=== PATIENT | female | born 1935 | race Caucasian/White ===

== ENCOUNTER 2016-09-23 22:30 | Inpatient (IN) | payer OTHER ==
[~2016-09-23] VITALS: Ht 154.9 cm; Wt 78.8 kg
[2016-09-23] MEDS ORDERED: SODIUM CHLORIDE 0.9% 1000ML 1,000 ML IV SCH (23:22)
--- NOTE | 2016-09-23 23:39 | EMERGENCY ROOM VISIT NOTE ---
History Report prepared by Peter: Giovanni Conway Under the Supervision of: Dr. Kyra Kenney M.D. First contact with patient: 23:13 Chief Complaint: ALTERED MENTAL STATUS Stated Complaint: MENTAL,SWOLLEN R CHEEK, TOE PAIN, FATIGUE, Nursing Triage Summary: son reports that pt has been c/o fatigue for the past few days and right pinky toe pain for a few days. yesterday pts right cheek was swollen and she wasn't acting herself. Son was unable to get ahold of pt all day long and he went to check on her and she was putting dog food in her pill container. son reports that pts sentences were not making sense. unsure if pt has been taking meds. History of Present Illness The patient is a 80 year old female who presents to the Emergency Room with complaints of constant altered mental status starting around 2100 tonight. Per the patient's family, the patient was found trying to put dog food into her medication capsules, and she was feeding her dog the medication and food. Per the patient, she is feeling well, and she denies any pain, weight loss, headache , changes in vision, vomiting, or history of strokes. She states that she smokes about a pack of cigarettes per day, and she denies drinking any alcohol. The patient states that she is diabetic, and she has been eating and drinking well. The patient's family additionally states that the patient has history of kidney stones and UTIs. Source of History: patient, family Onset: 2100 Position: other (global) Quality: other (altered mental status) Timing: constant Associated Symptoms: No headache, No vomiting Review of Systems See HPI for pertinent positives & negatives. A total of 10 systems reviewed and were otherwise negative. Past Medical & Surgical Medical Problems: (1) Kidney stone (2) UTI (urinary tract infection) Family History Diabetes mellitus Gallbladder disease Heart disease Hypertension Kidney disease Kidney stones Social History Smoking Status: Current Every Day Smoker Alcohol Use: none Marital Status: Housing Status: lives alone Occupation Status: retired Current/Historical Medications Scheduled Allopurinol (Zyloprim), 300 MG PO DAILY Atorvastatin (Lipitor), 40 MG PO HS Glipizide (Glucotrol), 10 MG PO BID Insulin Glargine (Lantus), 38 UNITS SQ AMPM Lisinopril/Hctz (Zestoretic 20MG/12.5MG), 1 TAB PO BID Metformin Hcl (Glucophage), 1,000 MG PO BIDM Potassium Citrate (Alkalinizer (Potassium Citrate ER), 3,240 MG PO TID Scheduled PRN Alprazolam (Xanax), 0.25 MG PO DAILY PRN for 30 MINUTES BEFORE FLYING Allergies Coded Allergies: NSAIDs (Verified Adverse Reaction, Intermediate, HX KIDNEY DISEASE, ) Uncoded Allergies: PENICILLIN (Allergy, Unknown, UNKNOWN- CHILDHOOD, 09/24/16) Physical Exam Vital Signs Date Time Temp Pulse Resp B/P Pulse Ox O2 Delivery O2 Flow Rate FiO2 09/24/16 01:18 69 22 102/66 96 Room Air 09/24/16 00:37 71 20 112/46 97 Room Air 09/24/16 00:11 94 Room Air 09/23/16 23:12 82 09/23/16 22:37 36.5 96 18 116/68 94 Room Air Physical Exam Vital signs reviewed. General: Well-appearing older female, in no significant distress. Smells of cigarettes. Confused but answers most questions appropriately with some prompting. HEENT: No scleral icterus, PERRLA, neck supple. Atraumatic. Cardiovascular: Regular rate and rhythm, no extra sounds. Pulmonary: Diffuse wheezing, a coarse cough, normal work of breathing. Abdomen: Soft, nontender, nondistended, positive bowel sounds. Musculoskeletal: Atraumatic, no peripheral edema. Neurologic: No drift. Patient awake alert and oriented x 3, full strength in all 4 extremities. Cranial nerves 2 through 12 grossly intact. Skin: Warm, dry, no rash Medical Decision & Procedures ER Provider Diagnostic Interpretation: X-ray results as stated below per interpretation by me: CHEST X-RAY Some perihilar fullness. No focal lung consolidation. No failure. Radiology results as stated below per my review and radiologist interpretation: CT HEAD: No acute intracranial abnormality. No ICH, mass effect or edema. Cortical atrophy and white matter changers most consistent with chronic small vessel disease. Mild paranasal sinus disease involving the ethmoid air cells. Laboratory Results 09/23/16 23:50 Red Blood Count 4.20, Mean Corpuscular Volume 84.8, Mean Corpuscular Hemoglobin 28.6, Mean Corpuscular Hemoglobin Concent 33.7, Mean Platelet Volume 8.4, Neutrophils (%) (Auto) 76.6, Lymphocytes (%) (Auto) 15.7, Monocytes (%) (Auto) 6.6, Eosinophils (%) (Auto) 0.4, Basophils (%) (Auto) 0.2, Neutrophils # (Auto) 9.88, Lymphocytes # (Auto) 2.02, Monocytes # (Auto) 0.85, Eosinophils # (Auto) 0.05, Basophils # (Auto) 0.02 09/23/16 23:50 Test 09/23/16 23:11 09/23/16 23:50 09/24/16 00:05 Bedside Glucose 259 mg/dl (70-90) White Blood Count 12.88 K/uL (4.8-10.8) Red Blood Count 4.20 M/uL (4.2-5.4) Hemoglobin 12.0 g/dL (12.0-16.0) Hematocrit 35.6 % (37-47) Mean Corpuscular Volume 84.8 fL (80-100) Mean Corpuscular Hemoglobin 28.6 pg (25-34) Mean Corpuscular Hemoglobin Concent 33.7 g/dl (32-36) Platelet Count 317 K/uL (130-400) Mean Platelet Volume 8.4 fL (7.4-10.4) Neutrophils (%) (Auto) 76.6 % Lymphocytes (%) (Auto) 15.7 % Monocytes (%) (Auto) 6.6 % Eosinophils (%) (Auto) 0.4 % Basophils (%) (Auto) 0.2 % Neutrophils # (Auto) 9.88 K/uL (1.4-6.5) Lymphocytes # (Auto) 2.02 K/uL (1.2-3.4) Monocytes # (Auto) 0.85 K/uL (0.11-0.59) Eosinophils # (Auto) 0.05 K/uL (0-0.5) Basophils # (Auto) 0.02 K/uL (0-0.2) RDW Standard Deviation 42.0 fL (36.4-46.3) RDW Coefficient of Variation 13.7 % (11.5-14.5) Immature Granulocyte % (Auto) 0.5 % Immature Granulocyte # (Auto) 0.06 K/uL (0.00-0.02) Prothrombin Time 11.0 SECONDS (9.0-12.0) Prothromb Time International Ratio 1.0 (0.9-1.1) Activated Partial Thromboplast Time 25.4 SECONDS (21.0-31.0) Partial Thromboplastin Ratio 1.0 Anion Gap 7.0 mmol/L (3-11) Est Creatinine Clear Calc Drug Dose 44.6 ml/min Estimated GFR () 61.2 Estimated GFR (Non- 52.8 BUN/Creatinine Ratio 17.2 (10-20) Calcium Level 8.5 mg/dl (8.5-10.1) Total Creatine Kinase 16 U/L (26-192) Creatine Kinase MB < 0.5 ng/ml (0.5-3.6) Creatine Kinase MB Ratio (0-3.0) Troponin I < 0.015 ng/ml (0-0.045) Urine Color YELLOW Urine Appearance CLOUDY (CLEAR) Urine pH 5.0 (4.5-7.5) Urine Specific [place] >= 1.030 (1.000-1.030) Urine Protein 2+ (NEG) Urine Glucose (UA) NEG (NEG) Urine Ketones TRACE (NEG) Urine Occult Blood 1+ (NEG) Urine Nitrite NEG (NEG) Urine Bilirubin NEG (NEG) Urine Urobilinogen NEG (NEG) Urine Leukocyte Esterase SMALL (NEG) Urine RBC 0-4 /hpf (0-4) Urine WBC >30 /hpf (0-5) Urine Epithelial Cells 10-20 /lpf (0-5) Urine Bacteria 1+ (NEG) Urine Opiates Screen NEG (NEG) Urine Methadone, Qualitative NEG (NEG) Urine Barbiturates NEG (NEG) Urine Phencyclidine (PCP) Level NEG (NEG) Ur Amphetamine/Methamphetamine NEG (NEG) MDMA (Ecstasy) Screen NEG (NEG) Urine Benzodiazepines Screen NEG (NEG) Urine Cocaine Metabolite NEG (NEG) Urine Marijuana (THC) NEG (NEG) Laboratory results per my review. Medications Administered Medications (Trade) Dose Ordered Sig/Walt Route Start Time Stop Time Status Last Admin Dose Admin Sodium Chloride (Nss 1000ml) 1,000 ml @ 50 mls/hr Q20H IV 09/23/16 23:22 10/23/16 23:21 09/24/16 00:36 50 MLS/HR Ceftriaxone Sodium (Rocephin Inj) 1 gm NOW STAT IV 09/24/16 00:45 09/24/16 00:47 DC 09/24/16 01:14 1 GM ECG Indication: altered mental status Rate (beats per minute): 84 Rhythm: normal sinus Findings: no acute ischemic change, no ectopy, other (previous anterolateral infarct) ED Course 2320: Past medical records reviewed. The patient was evaluated in room B11. A complete history and physical examination was performed. 2322: Sodium Chloride 1000 ml @ 50 mls/hr IV 0045: Rocephin Inj 1gm IV 0114: I reevaluated the patient, and she was resting. 0119: I discussed the patient's case with Dr. Cisneros. He is going to evaluate the patient for further treatment Medical Decision Differential diagnosis: Etiologies such as metabolic, infection, hypoglycemia, electrolyte abnormalities , cardiac sources, intracerebral event, toxicologic, neurologic, as well as others were entertained. This patient was evaluated and appeared to be in no significant distress. The patient is somewhat disheveled, smells of cigarettes. CT scan of the head reveals atrophy and chronic change however there is no evidence of acute infarct or hemorrhage. Chest x-ray is clear to my interpretation. Patient's laboratory work reveals a leukocytosis. Urinalysis is indicative of infection will be sent for culture. Patient's vital signs have remained stable. She was hydrated with normal saline solution and given 1 g of IV ceftriaxone. Case was discussed with the hospitalist, Dr. Rogers who will evaluate the patient for further management. Consults Time Called: 100 Consulting Physician: Dr. Cisneros Returned Call: [phone] I discussed the patient's case with Dr. Cisneros. He is going to evaluate the patient for further treatment Impression Primary Impression: Urinary tract infection Additional Impression: Altered mental status Scribe Attestation The scribe's documentation has been prepared under my direction and personally reviewed by me in its entirety. I confirm that the note above accurately reflects all work, treatment, procedures, and medical decision making performed by me. Departure Information Dispostion Being Evaluated By Hospitalist Rosalina Chakraborty M.D. (MEDICAL) (PCP) Patient Instructions [facility] Problem Qualifiers
[2016-09-24 00:08] LABS: BASO % 0.2 %; BASO ABS # 0.02 K/uL (0-0.2); COMPLETE YES; EOS % 0.4 %; HEMATOCRIT 35.6 % (37-47); IG% 0.5 %; LYMPH % 15.7 %; LYMPH ABS # 2.02 K/uL (1.2-3.4); MEAN CELL VOLUME 84.8 fL (80-100); MEAN CORPUSCULAR HEMOGLOBIN 28.6 pg (25-34); MEAN CORPUSCULAR HGB CONC 33.7 g/dl (32-36); MEAN PLATELET VOLUME 8.4 fL (7.4-10.4); MONO % 6.6 %; NEUT % 76.6 %; PLATELET COUNT 317 K/uL (130-400); WHITE BLOOD COUNT 12.88 K/uL (4.8-10.8)
[2016-09-24 00:25] LABS: BLOOD UREA NITROGEN 17 mg/dl (7-18); BUN/CREATININE RATIO 17.2 (10-20); CALCIUM 8.5 mg/dl (8.5-10.1); CARBON DIOXIDE 29 mmol/L (21-32); CHLORIDE 98 mmol/L (98-107); GLUCOSE 253 mg/dl (70-99); SODIUM 134 mmol/L (136-145)
[2016-09-24] MEDS ORDERED: METF-384 PO (00:28)
[2016-09-24] MEDS ORDERED: LISI-787 PO (00:29)
[2016-09-24] MEDS ORDERED: GLIP10TA9 PO (00:30)
[2016-09-24 00:31] LABS: MANUAL MICROSCOPIC REQUIRED? YES; URINE APPEARANCE CLOUDY (CLEAR); URINE COLOR YELLOW; URINE NITRITE NEG (NEG); URINE SPECIFIC GRAVITY >= 1.030 (1.000-1.030); UROBILINOGEN NEG (NEG)
[2016-09-24] MEDS ORDERED: ALLO300T2 PO (00:31)
[2016-09-24] MEDS ORDERED: INSDGI SQ (00:32)
[2016-09-24] MEDS ORDERED: ATOR-24 PO (00:33)
[2016-09-24] MEDS ORDERED: POTA1080 PO (00:36)
[2016-09-24 00:38] LABS: REVIEW REQ? NO; URINE BILIRUBIN NEG (NEG)
[2016-09-24] MEDS ORDERED: ALPR0.25 PO (00:38)
[2016-09-24 00:40] LABS: URINE BACTERIA 1+ (NEG); URINE RBC 0-4 /hpf (0-4); URINE WBC >30 /hpf (0-5); ZZURINE CULT IF INDIC CATH YES
[2016-09-24] MEDS ORDERED: CEFTRIAXONE SOD INJ 1 GM ADDVIAL IV STA (00:45)
[2016-09-24 00:52] LABS: BENZODIAZEPINE, URINE NEG (NEG); COCAINE,URINE NEG (NEG); PHENCYCLIDINE, URINE NEG (NEG)
[2016-09-24 01:35] LABS: ALKALINE PHOSPHATASE 126 U/L (45-117); ALT/SGPT 11 U/L (12-78); AST/SGOT 7 U/L (15-37); MAGNESIUM 1.2 mg/dl (1.8-2.4)
[2016-09-24] MEDS ORDERED: ACETAMINOPHEN 325 MG TAB PO PRN (02:00)
[2016-09-24] MEDS ORDERED: GLUCOSE 10 TABS/TUBE PO PRN (02:00)
[2016-09-24] MEDS ORDERED: ONDANSETRON INJ 2 MG/ML 2 ML VIAL IV PRN (02:00)
[2016-09-24] MEDS ORDERED: GLUCAGON FOR INJ 1 MG VIAL SQ PRN (02:00)
[2016-09-24] MEDS ORDERED: TRAMADOL HCL 50 MG TAB PO PRN (02:00)
[2016-09-24] MEDS ORDERED: GLUCOSE 40% GEL 15 GM TUBE PO PRN (02:00)
[2016-09-24] MEDS ORDERED: ALBUT/IPRATROP 3MG/0.5MG NEB 3 ML VIAL INH PRN (02:00)
[2016-09-24] MEDS ORDERED: DEXTROSE 50% 50 ML SYR IV PRN (02:00)
[2016-09-24] MEDS ORDERED: INSULIN ASPART 100 UNITS/ML 3 ML PEN SC STA (02:20)
[2016-09-24] MEDS ORDERED: INSULIN GLARGINE SOLOSTAR 100 UNITS/ML 3 ML PEN SQ STA (02:21)
[2016-09-24] MEDS ORDERED: MAGNESIUM SULFATE 1GM / D5W 1 GM BAG ONE (02:37)
[2016-09-24] MEDS: MAGNESIUM SULFATE 1GM / D5W 1 GM in PREMIXED IN D5W 100 ML IV SCH ×3 (02:42→05:53)
[2016-09-24 03:44] VITALS: BP 139/77; PULSE 66; TEMP 36.4; O2SAT 95
[2016-09-24] MEDS ORDERED: SODIUM CHLORIDE 0.9% 1000ML 1,000 ML IV ONE (03:45)
--- NOTE | 2016-09-24 03:59 | HISTORY & PHYSICAL EXAMINATION ---
DATE OF ADMISSION: 09/24/2016 PRIMARY CARE PHYSICIAN: Dr. Piper. History obtained from patient and records. Patient is a reliable historian. CHIEF COMPLAINT: Altered mental status per records. "My son brought me over" as per the patient. HISTORY OF PRESENT ILLNESS: Medical history significant for hypertension, ongoing tobacco abuse, DM2, insulin requiring. Patient was at a [facility] with her son last week. Came home a few days ago. Yesterday as per notes, patient noted by son to have altered mental status, putting dog food in capsules and not making sense. Patient denies this. Patient admits to some bladder discomfort, appetite okay. No chest pain, no shortness of breath. No fever, no chills. At the Emergency Room, the patient received IV Ceftriaxone for UTI. MEDICAL HISTORY: As above. PAST SURGICAL HISTORY: She has had a hysterectomy, rectocele repair, cholecystectomy, appendectomy, urologic procedures. HOME MEDICATIONS: Include Glucophage, Lantus, potassium, Xanax prn, Lipitor, Glucotrol, Zestoretic. ALLERGIES: NSAIDs. FAMILY HISTORY: Diabetes, heart disease. PERSONAL AND SOCIAL HISTORY: Pack daily. No chronic ETOH intake, lives alone in an apartment. REVIEW OF SYSTEMS: As per HPI. All other ROS negative. PHYSICAL EXAMINATION: VITAL SIGNS: Blood pressure was noted to be 112/40, pulse rate 90, RR 20, temperature 98.6, sats 98RA. GENERAL: Noted to be unkempt. No respiratory distress. Overweight, looks younger for stated age. SKIN: Normal color. HEENT: [place] palpebral conjunctivae. Dry mucosa. NECK: Short neck. LUNGS: Decreased breath sounds. HEART: Regular rate and rhythm. ABDOMEN: Some distention. NT EXTREMITIES: No edema. no tenderness NEUROLOGIC: No gross focality. LABS: Hemoglobin was noted to be 12, hematocrit 35.7, white cell count 10, platelets 200 Sodium 134, potassium 4, chloride 98, CO2 of 29, BUN 70, creatinine 1, glucose 250. trop 0 Hemoglobin A1c from August 2016 was 8.8. UA, WBC positive, trace ketones. CT of the head, no acute pathology. Chest x-ray, atelectasis. ASSESSMENT: 1. Transient encephalopathy mild clinical dehydration urinary tract infection. No sepsis. 2. DM2, insulin requiring, suboptimal control as of recent outpx HgA1c. 3. Hypertension, blood pressure on the lower side 3. ongoing tobacco abuse. PLAN: GMF Follow urine cultures, IV Cefepime for now. IVF. Hold home diuretics for now basal Lantus, ISS BG goal 140-180 carb count coverage indicated for suboptimal BG control Nicotine patch. PT, OT eval. DVT prophylaxis, Lovenox subQ. Full code Awaiting for a callback from son, Mr. Adam Matos to obtain additional history. contact number : [phone]. [place]
[2016-09-24 04:03] VITALS: BP 139/77; PULSE 66; TEMP 36.4; O2SAT 95; Ht 154.9 cm; Wt 78.8 kg
[2016-09-24] MEDS ORDERED: CEFEPIME IV 1,000 MG in DEXTROSE 5% 100ML IV SCH (06:00)
[2016-09-24 06:05] LABS: BASO % 0.1 %; BASO ABS # 0.01 K/uL (0-0.2); COMPLETE YES; EOS % 1.2 %; HEMATOCRIT 35.8 % (37-47); IG% 0.3 %; LYMPH % 18.5 %; LYMPH ABS # 2.09 K/uL (1.2-3.4); MEAN CELL VOLUME 85.6 fL (80-100); MEAN CORPUSCULAR HEMOGLOBIN 28.7 pg (25-34); MEAN CORPUSCULAR HGB CONC 33.5 g/dl (32-36); MEAN PLATELET VOLUME 8.6 fL (7.4-10.4); MONO % 6.6 %; NEUT % 73.3 %; PLATELET COUNT 305 K/uL (130-400); RED BLOOD COUNT 4.18 M/uL (4.2-5.4); WHITE BLOOD COUNT 11.28 K/uL (4.8-10.8)
[2016-09-24 06:56] LABS: BUN/CREATININE RATIO 18.4 (10-20); CALCIUM 8.4 mg/dl (8.5-10.1); CREATININE 0.93 mg/dl (0.60-1.20); MAGNESIUM 2.3 mg/dl (1.8-2.4); POTASSIUM 3.5 mmol/L (3.5-5.1)
--- NOTE | 2016-09-24 07:07 | DIAGNOSTIC IMAGING REPORT ---
CT SCAN OF THE BRAIN WITHOUT IV CONTRAST CLINICAL HISTORY: Confusion. Change in mental status. COMPARISON STUDY: No priors. TECHNIQUE: Unenhanced axial CT scan of the brain is performed from the vertex to the skull base. CT DOSE: 537.48 mGy.cm FINDINGS: Brain parenchyma: There are age-related involutional changes noting [id number] patchy subcortical and periventricular microangiopathic change. There is no hemorrhage, mass effect, or evidence of acute territorial ischemia by CT criteria. Romero-white matter is preserved. No extra-axial fluid collection is seen. Ventricles, sulci, cisterns: Prominent secondary to involutional change. Intracranial vasculature: There is atherosclerotic calcification of the cavernous carotid and vertebral arteries. Calvarium: Unremarkable. Sinuses and mastoids: Mild mucosal thickening is seen within the left ethmoid sinuses. The remaining visualized paranasal sinuses are clear. The mastoid air cells are well pneumatized. Orbits: The bony orbits are grossly intact. IMPRESSION: There is no hemorrhage, mass effect, or evidence of acute territorial ischemia by CT criteria. Electronically signed by: Malcolm Hale M.D. 09/24/2016 7:05 AM Dictated Date/Time: 09/24/2016 7:03 AM
--- NOTE | 2016-09-24 07:13 | DIAGNOSTIC IMAGING REPORT ---
SINGLE VIEW CHEST CLINICAL HISTORY: Strokelike symptoms. FINDINGS: An AP, portable, upright chest radiograph is obtained. No prior studies are available for comparison at the time of dictation. The examination is degraded by portable technique and patient rotation. The heart is top normal for projection. The pulmonary vasculature is noncongested. Nonspecific and chronic appearing interstitial thickening is noted. There is mild elevation of left hemidiaphragm with left basilar atelectasis. No airspace consolidation is seen typical for pneumonia and there is no large pleural effusion. No pneumothorax is seen. The skeletal structures are osteopenic. The bony thorax is grossly intact. IMPRESSION: No acute cardiopulmonary abnormality. Electronically signed by: Malcolm Hale M.D. 09/24/2016 7:11 AM Dictated Date/Time: 09/24/2016 7:10 AM
[2016-09-24 08:14] VITALS: BP 119/51; PULSE 64; TEMP 36.6; O2SAT 99
[2016-09-24] MEDS: INSULIN ASPART 100 UNITS/ML 3 ML PEN SC SCH ×2 (08:16→11:53)
[2016-09-24] MEDS ORDERED: ENOXAPARIN 40 MG/0.4 ML SYR SQ SCH (09:00)
[2016-09-24] MEDS ORDERED: CEFEPIME CONSULT ACTIVE PRN ×2 (09:00)
[2016-09-24] MEDS ORDERED: ALLOPURINOL 300 MG TAB PO SCH (09:00)
[2016-09-24] MEDS ORDERED: NICOTINE 21 MG/24 HR TDSY TD SCH (09:00)
[2016-09-24] MEDS ORDERED: LISINOPRIL 10 MG TAB PO SCH (09:00)
--- NOTE | 2016-09-24 09:56 | Progress Note ---
Internal Med Progress Note Date of Service: Sep 24, 2016. Provider Documentation: SUBJECTIVE: Patient is doing well - awake, alert, oriented x 3. Eager to be discharged. Says she feels good- denies any chest pain, sob, cough, fever, chill, abdominal pain, nausea, vomiting. Does c/o urinary frequency, burning micturition OBJECTIVE: Vital Signs-as noted below Exam: General-AAOX3, no distress Neck-No JVD Lungs-AEBE, no wheezing, rhonchi, rales Heart-S1, S2 normal, no murmurs Abdomen-Soft, non tender, non distended, BS present Extremities-No edema Neuro-AAOX3, No focal deficits, Power 5/5 all extremities, cranial nerves intact Lab data as noted below. ASSESSMENT & PLAN: ASSESSMENT AND PLAN : EPISODIC CONFUSION : Resolved Mental status now- awake, alert, oriented x 3. -Per son, patient was confused yesterday . Not associated with any other symptoms and thus he brought her to ED for evaluation. -Unclear etiology. No prior hx of dementia. May be seeing some mild cognitive impairment with aging ? -Work up- CT head- no acute abnormalities, TSH- normal. UTI- Symptomatic with positive UA -IV Cefepime- will change it to PO Ciprofloxacin BID -Urine c/s- follow up HYPOMAGNESEMIA Likely with lasix intake -Replaced and resolved DM-2 -ISS, Accuchecks HTN -On lower side -Monitor TOBACCO ABUSE DISORDER -Counseling done DVT PROPHYLAXIS Lovenox sq DISPOSITION PT/OT Ordered Possible discharge today evening if continues to be stable Tried contacting son about additional history - unable to reach him- voice message. Vital Signs: Date Time Temp Pulse Resp B/P Pulse Ox O2 Delivery O2 Flow Rate FiO2 09/24/16 08:14 36.6 64 16 119/51 99 Room Air 09/24/16 04:03 36.4 66 20 139/77 95 Room Air 09/24/16 03:44 36.4 66 20 139/77 95 Room Air 09/24/16 02:47 72 20 137/47 96 Room Air 09/24/16 01:18 69 22 102/66 96 Room Air 09/24/16 00:37 71 20 112/46 97 Room Air 09/24/16 00:11 94 Room Air 09/23/16 23:12 82 09/23/16 22:37 36.5 96 18 116/68 94 Room Air Lab Results: Results Past 24 Hours Test 09/23/16 23:11 09/23/16 23:50 09/24/16 00:05 09/24/16 02:25 Range/Units Bedside Glucose 259 263 70-90 mg/dl White Blood Count 12.88 4.8-10.8 K/uL Red Blood Count 4.20 4.2-5.4 M/uL Hemoglobin 12.0 12.0-16.0 g/dL Hematocrit 35.6 37-47 % Mean Corpuscular Volume 84.8 80-100 fL Mean Corpuscular Hemoglobin 28.6 25-34 pg Mean Corpuscular Hemoglobin Concent 33.7 32-36 g/dl Platelet Count 317 130-400 K/uL Mean Platelet Volume 8.4 7.4-10.4 fL Neutrophils (%) (Auto) 76.6 % Lymphocytes (%) (Auto) 15.7 % Monocytes (%) (Auto) 6.6 % Eosinophils (%) (Auto) 0.4 % Basophils (%) (Auto) 0.2 % Neutrophils # (Auto) 9.88 1.4-6.5 K/uL Lymphocytes # (Auto) 2.02 1.2-3.4 K/uL Monocytes # (Auto) 0.85 0.11-0.59 K/uL Eosinophils # (Auto) 0.05 0-0.5 K/uL Basophils # (Auto) 0.02 0-0.2 K/uL RDW Standard Deviation 42.0 36.4-46.3 fL RDW Coefficient of Variation 13.7 11.5-14.5 % Immature Granulocyte % (Auto) 0.5 % Immature Granulocyte # (Auto) 0.06 0.00-0.02 K/uL Prothrombin Time 11.0 9.0-12.0 SECONDS Prothromb Time International Ratio 1.0 0.9-1.1 Activated Partial Thromboplast Time 25.4 21.0-31.0 SECONDS Partial Thromboplastin Ratio 1.0 Sodium Level 134 136-145 mmol/L Potassium Level 4.0 3.5-5.1 mmol/L Chloride Level 98 98-107 mmol/L Carbon Dioxide Level 29 21-32 mmol/L Anion Gap 7.0 3-11 mmol/L Blood Urea Nitrogen 17 7-18 mg/dl Creatinine 1.00 0.60-1.20 mg/dl Est Creatinine Clear Calc Drug Dose 44.6 ml/min Estimated GFR () 61.2 Estimated GFR (Non- 52.8 BUN/Creatinine Ratio 17.2 10-20 Random Glucose 253 70-99 mg/dl Calcium Level 8.5 8.5-10.1 mg/dl Magnesium Level 1.2 1.8-2.4 mg/dl Total Bilirubin 0.6 0.2-1 mg/dl Direct Bilirubin 0.2 0-0.2 mg/dl Aspartate Amino Transf (AST/SGOT) 7 15-37 U/L Alanine Aminotransferase (ALT/SGPT) 11 12-78 U/L Alkaline Phosphatase 126 45-117 U/L Total Creatine Kinase 16 26-192 U/L Creatine Kinase MB < 0.5 0.5-3.6 ng/ml Creatine Kinase MB Ratio 0-3.0 Troponin I < 0.015 0-0.045 ng/ml Total Protein 6.8 6.4-8.2 gm/dl Albumin 3.2 3.4-5.0 gm/dl Thyroid Stimulating Hormone (TSH) 2.020 0.300-4.500 uIu/ml Urine Color YELLOW Urine Appearance CLOUDY CLEAR Urine pH 5.0 4.5-7.5 Urine Specific [place] >= 1.030 1.000-1.030 Urine Protein 2+ NEG Urine Glucose (UA) NEG NEG Urine Ketones TRACE NEG Urine Occult Blood 1+ NEG Urine Nitrite NEG NEG Urine Bilirubin NEG NEG Urine Urobilinogen NEG NEG Urine Leukocyte Esterase SMALL NEG Urine RBC 0-4 0-4 /hpf Urine WBC >30 0-5 /hpf Urine Epithelial Cells 10-20 0-5 /lpf Urine Bacteria 1+ NEG Urine Opiates Screen NEG NEG Urine Methadone, Qualitative NEG NEG Urine Barbiturates NEG NEG Urine Phencyclidine (PCP) Level NEG NEG Ur Amphetamine/Methamphetamine NEG NEG MDMA (Ecstasy) Screen NEG NEG Urine Benzodiazepines Screen NEG NEG Urine Cocaine Metabolite NEG NEG Urine Marijuana (THC) NEG NEG Test 09/24/16 05:41 09/24/16 07:52 Range/Units White Blood Count 11.28 4.8-10.8 K/uL Red Blood Count 4.18 4.2-5.4 M/uL Hemoglobin 12.0 12.0-16.0 g/dL Hematocrit 35.8 37-47 % Mean Corpuscular Volume 85.6 80-100 fL Mean Corpuscular Hemoglobin 28.7 25-34 pg Mean Corpuscular Hemoglobin Concent 33.5 32-36 g/dl Platelet Count 305 130-400 K/uL Mean Platelet Volume 8.6 7.4-10.4 fL Neutrophils (%) (Auto) 73.3 % Lymphocytes (%) (Auto) 18.5 % Monocytes (%) (Auto) 6.6 % Eosinophils (%) (Auto) 1.2 % Basophils (%) (Auto) 0.1 % Neutrophils # (Auto) 8.27 1.4-6.5 K/uL Lymphocytes # (Auto) 2.09 1.2-3.4 K/uL Monocytes # (Auto) 0.75 0.11-0.59 K/uL Eosinophils # (Auto) 0.13 0-0.5 K/uL Basophils # (Auto) 0.01 0-0.2 K/uL RDW Standard Deviation 42.5 36.4-46.3 fL RDW Coefficient of Variation 13.6 11.5-14.5 % Immature Granulocyte % (Auto) 0.3 % Immature Granulocyte # (Auto) 0.03 0.00-0.02 K/uL Sodium Level 137 136-145 mmol/L Potassium Level 3.5 3.5-5.1 mmol/L Chloride Level 100 98-107 mmol/L Carbon Dioxide Level 27 21-32 mmol/L Anion Gap 10.0 3-11 mmol/L Blood Urea Nitrogen 17 7-18 mg/dl Creatinine 0.93 0.60-1.20 mg/dl Est Creatinine Clear Calc Drug Dose 45.1 ml/min Estimated GFR () 66.8 Estimated GFR (Non- 57.6 BUN/Creatinine Ratio 18.4 10-20 Random Glucose 202 70-99 mg/dl Calcium Level 8.4 8.5-10.1 mg/dl Magnesium Level 2.3 1.8-2.4 mg/dl Ethyl Alcohol mg/dL < 3.0 0-3 mg/dl Bedside Glucose 189 70-90 mg/dl Microbiology Results 09/24/16 Urine Culture, Received Pending
[2016-09-24] MEDS ORDERED: CIPROFLOXACIN 250 MG TAB PO SCH (10:30)
[2016-09-24 15:03] VITALS: BP 97/42; PULSE 51; TEMP 36.3; O2SAT 97
[2016-09-24] MEDS ORDERED: CPR500 PO (15:26)
--- NOTE | 2016-09-24 15:29 | Discharge Instructions ---
Discharge Instructions Date of Service Sep 24, 2016. Admission Reason for Admission: Encephalopathy Discharge Discharge Diagnosis / Problem: 1. Episodic confusion 2. UTI Discharge Goals Goal(s): Decrease discomfort, Improve function Activity Recommendations Activity Limitations: resume your previous activity (as prior to admission) . Instructions / Follow-Up Instructions / Follow-Up MEDICATION CHANGES: 1. New medication: Ciprofloxacin 500 mg PO BID x 6 more days to complete course of 7 days of antibiotics FOLLOW UP 1. Follow up with Dr Piper 09/29/16 at 10:05 AM Current Hospital Diet Patient's current hospital diet: Diabetes Type 2 Diet, AHA Diet (Heart Healthy) Discharge Diet Recommended Diet: AHA Diet (Heart Healthy), Low Sodium Diet (2gm Na), Diabetes Type 2 Diet Pending Studies Studies pending at discharge: no Medical Emergencies . Who to Call and When: Medical Emergencies: If at any time you feel your situation is an emergency, please call 911 immediately. . Non-Emergent Contact Non-Emergency issues call your: Primary Care Provider . . "Provider Documentation" section prepared by Ely Hooks. . VTE Core Measure Inpt VTE Proph given/why not?: Enoxaparin (Lovenox)SQ
--- NOTE | 2016-09-24 15:39 | Discharge Summary ---
Discharge Summary Date of Service Sep 24, 2016. Discharge Summary Admission Date: Sep 24, 2016 at 01:56 Discharge Date: Sep 24, 2016 Discharge Disposition: Home Principal Diagnosis: 1. Episodic confusion 2. UTI 3. Hypomagnesemia Secondary Diagnoses/Problems: 1. DM-2 2. HTN 3. Tobacco abuse disorder Procedures: IV fluids CT head CXR Consultations: None Pending Studies/Follow-Up: Instructions / Follow-Up MEDICATION CHANGES: 1. New medication: Ciprofloxacin 500 mg PO BID x 6 more days to complete course of 7 days of antibiotics FOLLOW UP 1. Follow up with Dr Piper 09/29/16 at 10:05 AM Medication Reconciliation New Medications: Ciprofloxacin (Ciprofloxacin HCl) 500 Mg Tab 500 MG PO BID for 6 Days, #12 TAB Continued Medications: Allopurinol (Zyloprim) 300 Mg Tab 300 MG PO DAILY, TAB Alprazolam (Xanax) 0.25 Mg Tab 0.25 MG PO DAILY PRN for 30 MINUTES BEFORE FLYING, TAB Atorvastatin (Lipitor) 40 Mg Tab 40 MG PO HS, TAB Glipizide (Glucotrol) 10 Mg Tab 10 MG PO BID, TAB TAKE THIS MED TWICE DAILY, 30 MINUTES BEFORE A MEAL. Insulin Glargine (Lantus) 100 Unit/Ml Inj 38 UNITS SQ AMPM, VIAL Lisinopril/Hctz (Zestoretic 20MG/12.5MG) Tab 1 TAB PO BID, TAB Metformin Hcl (Glucophage) 1,000 Mg Tab 1000 MG PO BIDM, TAB Potassium Citrate (Alkalinizer (Potassium Citrate ER) 1,080 Mg Tab 3240 MG PO TID, TAB TAKE 3 TABLETS THREE TIMES DAILY. Admission Information HPI (per Admitting provider): HISTORY OF PRESENT ILLNESS: Medical history significant for hypertension, ongoing tobacco abuse, diabetes type 2 requiring. The [place] with [place] son[place] a few days ago. Yesterday as per notes, patient noted by son to have altered mental status, putting dog food in medication 01:33. The patient denies this. The patient admits to some bladder discomfort, appetite okay. No chest pain, no shortness of breath. At the Emergency Room, the patient received ceftriaxone for UTI. Hospital Course ASSESSMENT AND PLAN : EPISODIC CONFUSION : Resolved Mental status now- awake, alert, oriented x 3. -Per son, patient was confused yesterday momentarily. Not associated with any other symptoms and thus he brought her to ED for evaluation. -Unclear etiology. No prior hx of dementia. May be some mild cognitive impairment with aging ?? Needs to be monitored outpatient for any signs of cognitive impairment. -Per PT- AAOX3, totally independent without assistive devices, per nursing- no issues noted. -Work up- CT head- no acute abnormalities, TSH- normal. -okay to discharge home to day UTI- Symptomatic with positive UA -IV Cefepime- will change it to PO Ciprofloxacin BID x 6 more days to complete course of 7 days of antibiotics. -Urine c/s- follow up outpatient HYPOMAGNESEMIA Likely with lasix intake -Replaced and resolved DM-2 -ISS, Accuchecks HTN -On lower side -Monitor TOBACCO ABUSE DISORDER -Counseling done DVT PROPHYLAXIS Lovenox sq DISPOSITION PT/OT Ordered- cleared for discharge to home Tried contacting son about additional history - unable to reach him- voice message. Total time spent on discharge = This includes examination of the patient, discharge planning, medication reconciliation, and communication with other providers. Discharge Instructions Discharge Goals Goal(s): Decrease discomfort, Improve function Activity Recommendations Activity Limitations: resume your previous activity (as prior to admission) . Instructions / Follow-Up Instructions / Follow-Up MEDICATION CHANGES: 1. New medication: Ciprofloxacin 500 mg PO BID x 6 more days to complete course of 7 days of antibiotics FOLLOW UP 1. Follow up with Dr Piper 09/29/16 at 10:05 AM Current Hospital Diet Patient's current hospital diet: Diabetes Type 2 Diet, AHA Diet (Heart Healthy) Discharge Diet Recommended Diet: AHA Diet (Heart Healthy), Low Sodium Diet (2gm Na), Diabetes Type 2 Diet Pending Studies Studies pending at discharge: no Medical Emergencies . Who to Call and When: Medical Emergencies: If at any time you feel your situation is an emergency, please call 911 immediately. . Non-Emergent Contact Non-Emergency issues call your: Primary Care Provider . . "Provider Documentation" section prepared by Ely Hooks. . VTE Core Measure Inpt VTE Proph given/why not?: Enoxaparin (Lovenox)SQ
[2016-09-24 15:42] VITALS: BP 118/57; PULSE 51; TEMP 36.3; O2SAT 97
[2016-09-24] MEDS ORDERED: INSULIN GLARGINE SOLOSTAR 100 UNITS/ML 3 ML PEN SQ SCH (21:00)
[2016-09-24] MEDS ORDERED: ATORVASTATIN 20 MG TAB PO SCH (21:00)
[2016-10-18] MEDS ORDERED: MAGN400T5 PO (04:14)
== END 2016-09-24 17:45 | disposition home or self-care (01) | DRG 690 ==
LOC: ENRESERVDT → ENRESERVTM → C.EDB 22:33 → C.MS2W 09-24 01:56
PROVIDERS: ADMIT Internal Medicine; ATTEND Internal Medicine
DX: N39.0 Urinary tract infection, site not specified (principal); R41.0 Disorientation, unspecified; E83.42 Hypomagnesemia; E11.9 Type 2 diabetes mellitus without complications; I10 Essential (primary) hypertension; F17.210 Nicotine dependence, cigarettes, uncomplicated; Z87.440 Personal history of urinary (tract) infections; Z79.4 Long term (current) use of insulin; Z79.84 Long term (current) use of oral hypoglycemic drugs; Z79.899 Other long term (current) drug therapy; Z88.6 Allergy status to analgesic agent; Z83.3 Family history of diabetes mellitus; Z82.49 Family history of ischemic heart disease and other diseases of the circulatory system

== ENCOUNTER 2016-10-18 01:25 | Inpatient (IN) | payer OTHER ==
[~2016-10-18] VITALS: Ht 162.6 cm; Wt 77.4 kg
[~2016-10-18 01:25] MED LIST: ALLO300T2 PO; ALPR0.25 PO; ATOR-24 PO; CPR500 PO; GLIP10TA9 PO; INSDGI SQ; LISI-787 PO; METF-384 PO; POTA1080 PO
--- NOTE | 2016-10-18 02:16 | EMERGENCY ROOM VISIT NOTE ---
History Report prepared by Peter: Steven Egan Under the Supervision of: Dr. Priscilla Lubin D.O. First contact with patient: 01:48 Chief Complaint: CONFUSION Stated Complaint: CONFUSION,SHAKING,FALL RIGHT KNEE,LOW SUGAR History of Present Illness The patient is a 80 year old female who presents to the Emergency Room with complaints of confusion that began this evening. Per the patient's son, he was with her earlier today. She was doing well this morning, and in the evening he went out to run some errands. When he returned, he found his mother lying on the couch shaking, covered in her own urine. She was slurring her words and could not make a sentence. He took her sugar level, and it was 85. She then tried to stand up and eat something to get her sugars up. When she tried to walk , she fell down and hurt her right elbow and right knee. She did not hit her head. He believes that her speech is currently still mildly slurred. The patient was here a couple of weeks ago secondary to a UTI. She had extreme confusion at this time. Per the patient, she feels good at this time. She remembers falling. She has right elbow and right knee pain. She is moderately confused at this time. Source of History: patient, family Onset: this evening Position: other (global) Symptom Intensity: moderate Quality: other (Confusion) Timing: constant Associated Symptoms: No LOC, No headache Note: She has right elbow pain and right knee pain. Review of Systems See HPI for pertinent positives & negatives. A total of 10 systems reviewed and were otherwise negative. Past Medical & Surgical Medical Problems: (1) Encephalopathy (2) Kidney stone (3) UTI (urinary tract infection) Family History Diabetes mellitus Gallbladder disease Heart disease Hypertension Kidney disease Kidney stones Social History Smoking Status: Current Every Day Smoker Alcohol Use: none Marital Status: Housing Status: lives alone Occupation Status: retired Current/Historical Medications Scheduled Allopurinol (Zyloprim), 300 MG PO DAILY Atorvastatin (Lipitor), 40 MG PO HS Ciprofloxacin (Ciprofloxacin HCl), 500 MG PO BID Glipizide (Glucotrol), 10 MG PO BID Insulin Glargine (Lantus), 38 UNITS SQ AMPM Lisinopril/Hctz (Zestoretic 20MG/12.5MG), 1 TAB PO BID Magnesium Oxide (Mag-Ox), 200 MG PO DAILY Metformin Hcl (Glucophage), 1,000 MG PO BIDM Potassium Citrate (Alkalinizer (Potassium Citrate ER), 3,240 MG PO TID Scheduled PRN Alprazolam (Xanax), 0.25 MG PO DAILY PRN for 30 MINUTES BEFORE FLYING Allergies Coded Allergies: Penicillins (Verified Allergy, Unknown, UNKNOWN, 10/18/16) NSAIDs (Verified Adverse Reaction, Intermediate, HX KIDNEY DISEASE, ) Physical Exam Vital Signs Date Time Temp Pulse Resp B/P Pulse Ox O2 Delivery O2 Flow Rate FiO2 10/18/16 03:23 76 14 141/84 95 Room Air 10/18/16 01:49 97 Room Air 10/18/16 01:49 86 10/18/16 01:31 36.5 89 20 127/68 94 Room Air Physical Exam HEENT: Head - normocephalic and atraumatic. Pupils are equal, round, and reactive to light. Extraocular eye muscles are intact and sclera are anicteric. Ears - bilaterally patent canals with noninjected tympanic membranes and no evidence of hemotympanum. Nose - moist nasal mucosa without discharge. Mouth - moist buccal mucosa. Oropharynx is nonerythematous and there is no tonsillar exudate or edema noted. Neck: Supple; no JVD, nuchal rigidity, cervical lymphadenopathy. Heart: Regular rate and rhythm. There is a normal S1 and S2 with no murmurs, clicks, or gallops appreciated. Lungs: Clear to auscultation bilaterally with no wheezes, rales, or rhonchi. Abdomen: Soft, completely nontender, nondistended, with good bowel sounds. There are no palpable pulsatile masses or hepatosplenomegaly. There is no guarding, rigidity, or rebound noted. Extremities: No evidence of cyanosis, clubbing, or edema. There are easily palpable peripheral pulses. Abrasion to the right elbow and right knee. Old scabbed-over abrasion to the left knee. Neuro:The patient is awake and alert, oriented to place and person, not time. Muscle strength is 5/5 in all 4 extremities. The patient has equal nurse outreach case manager strength and equal pedal push and pull. There are no cerebellar signs. Medical Decision & Procedures ER Provider Diagnostic Interpretation: Radiology results as stated below per my review and the radiologist's interpretation: CT HEAD: Comparison: CT head 09/24/16. No evidence of skull fracture. Mucosal thickening posterior left ethmoid air cells. The visualized paranasal sinuses and mastoid air cells. No ICH, mass effect, or edema. Stable involutional and chronic small vessel ischemic changes with intracranial atherosclerosis. Romero-white matter differentiation appears preserved. Radiologist: Murphy Meza M.D. Laboratory Results 10/18/16 01:55 Red Blood Count 4.83, Mean Corpuscular Volume 86.3, Mean Corpuscular Hemoglobin 29.0, Mean Corpuscular Hemoglobin Concent 33.6, Mean Platelet Volume 8.8, Neutrophils (%) (Auto) 82.1, Lymphocytes (%) (Auto) 13.7, Monocytes (%) (Auto) 3.0, Eosinophils (%) (Auto) 0.7, Basophils (%) (Auto) 0.2, Neutrophils # (Auto) 13.47, Lymphocytes # (Auto) 2.24, Monocytes # (Auto) 0.50, Eosinophils # (Auto) 0.12, Basophils # (Auto) 0.03 10/18/16 01:55 Test 10/18/16 01:55 White Blood Count 16.41 K/uL (4.8-10.8) Red Blood Count 4.83 M/uL (4.2-5.4) Hemoglobin 14.0 g/dL (12.0-16.0) Hematocrit 41.7 % (37-47) Mean Corpuscular Volume 86.3 fL (80-100) Mean Corpuscular Hemoglobin 29.0 pg (25-34) Mean Corpuscular Hemoglobin Concent 33.6 g/dl (32-36) Platelet Count 385 K/uL (130-400) Mean Platelet Volume 8.8 fL (7.4-10.4) Neutrophils (%) (Auto) 82.1 % Lymphocytes (%) (Auto) 13.7 % Monocytes (%) (Auto) 3.0 % Eosinophils (%) (Auto) 0.7 % Basophils (%) (Auto) 0.2 % Neutrophils # (Auto) 13.47 K/uL (1.4-6.5) Lymphocytes # (Auto) 2.24 K/uL (1.2-3.4) Monocytes # (Auto) 0.50 K/uL (0.11-0.59) Eosinophils # (Auto) 0.12 K/uL (0-0.5) Basophils # (Auto) 0.03 K/uL (0-0.2) RDW Standard Deviation 44.0 fL (36.4-46.3) RDW Coefficient of Variation 14.0 % (11.5-14.5) Immature Granulocyte % (Auto) 0.3 % Immature Granulocyte # (Auto) 0.05 K/uL (0.00-0.02) Urine Color YELLOW Urine Appearance CLEAR (CLEAR) Urine pH 6.5 (4.5-7.5) Urine Specific [place] 1.017 (1.000-1.030) Urine Protein 1+ (NEG) Urine Glucose (UA) NEG (NEG) Urine Ketones NEG (NEG) Urine Occult Blood NEG (NEG) Urine Nitrite NEG (NEG) Urine Bilirubin NEG (NEG) Urine Urobilinogen NEG (NEG) Urine Leukocyte Esterase NEG (NEG) Urine WBC (Auto) 1-5 /hpf (0-5) Urine RBC (Auto) 0-4 /hpf (0-4) Urine Hyaline Casts (Auto) 5-10 /lpf (0-5) Urine Epithelial Cells (Auto) >30 /lpf (0-5) Urine Bacteria (Auto) NEG (NEG) Anion Gap 8.0 mmol/L (3-11) Est Creatinine Clear Calc Drug Dose 53.4 ml/min Estimated GFR () 74.5 Estimated GFR (Non- 64.3 BUN/Creatinine Ratio 22.0 (10-20) Calcium Level 9.0 mg/dl (8.5-10.1) Total Bilirubin 0.6 mg/dl (0.2-1) Direct Bilirubin 0.2 mg/dl (0-0.2) Aspartate Amino Transf (AST/SGOT) 11 U/L (15-37) Alanine Aminotransferase (ALT/SGPT) 14 U/L (12-78) Alkaline Phosphatase 127 U/L (45-117) Total Creatine Kinase 37 U/L (26-192) Creatine Kinase MB 0.5 ng/ml (0.5-3.6) Creatine Kinase MB Ratio 1.4 (0-3.0) Troponin I < 0.015 ng/ml (0-0.045) Total Protein 7.8 gm/dl (6.4-8.2) Albumin 3.8 gm/dl (3.4-5.0) Laboratory results per my review. ECG Indication: altered mental status Rate (beats per minute): 84 Rhythm: normal sinus Findings: ST elevation (of 1mm in leads 2,3, and aVF), no ectopy Comparison ECG Date: 23 September 2016 Change: ST elevations are new. Second ECG showed: NSR 74, slight ST segment elevation in 2,3, and aVF ED Course 0148: Past medical records reviewed. The patient was evaluated in room A11B. A complete history and physical exam was performed. A twelve-lead EKG was obtained. An IV lock was initiated and labs are drones above. The patient went for CT scan of the brain. It's described above. 0305: Upon reevaluation, I discussed findings and results with the patient and her son. They verbalized agreement of the treatment plan. That the patient's mental status a significantly improved since her arrival here in the emergency department. I spoke with Dr. Quene of the [facility] Service. The patient will be evaluated for further management and care. Medical Decision The patient is an 80 year old female who presents to the ED with confusion. Differential diagnosis includes CVA, TIA, UTI, encephalopathy, hypoglycemia, seizures, and myocardial infarction. Laboratory interpretation: White blood cell count 16.4; stable H&H. Glucose 119. Normal renal function and LFTs. Negative cardiac enzymes. Urinalysis appears unremarkable. This is an 80-year-old male patient presents to the emergency department with an altered mental status and urinary incontinence. Patient had similar episode one month ago which she was diagnosed with urinary tract infection. Her urine appears to be clean at this time. CT scan of the brain was unremarkable. I considered the possibility of a TIA, CVA, and/or seizure. The patient is resting comfortably at this time and I am concerned about these episodes of altered mental status and the fact that she was found incontinent of urine and incoherent and that the patient fell. I discussed the case with the [facility] and they will evaluate for further management. Consults Time Called: 0300 Consulting Physician: Dr. Queen - [facility] Returned Call: [phone] They will be evaluating the patient for further management. Impression Primary Impression: Altered mental status Additional Impression: Urinary incontinence Scribe Attestation The scribe's documentation has been prepared under my direction and personally reviewed by me in its entirety. I confirm that the note above accurately reflects all work, treatment, procedures, and medical decision making performed by me. Departure Information Dispostion Being Evaluated By Hospitalist Prescriptions Magnesium Oxide (MAG-OX) 400 Mg Tab 200 MG PO DAILY, #30 TAB Prov: Merrill Queen MD 10/18/16 Referrals Rosalina Piper M.D. (MEDICAL) (PCP) Patient Instructions My [facility] Stroke History Stroke t-PA Criteria Reviewed Does NOT meet criteria for t-PA Reason t-PA Not Given Treatment not indicated Strict Exclusion Criteria Complete resolution of symptoms (NI Problem Qualifiers
[2016-10-18 02:19] LABS: BASO % 0.2 %; BASO ABS # 0.03 K/uL (0-0.2); COMPLETE YES; EOS % 0.7 %; HEMATOCRIT 41.7 % (37-47); IG% 0.3 %; LYMPH % 13.7 %; LYMPH ABS # 2.24 K/uL (1.2-3.4); MEAN CELL VOLUME 86.3 fL (80-100); MEAN CORPUSCULAR HGB CONC 33.6 g/dl (32-36); MEAN PLATELET VOLUME 8.8 fL (7.4-10.4); NEUT % 82.1 %; PLATELET COUNT 385 K/uL (130-400); RED BLOOD COUNT 4.83 M/uL (4.2-5.4); WHITE BLOOD COUNT 16.41 K/uL (4.8-10.8)
[2016-10-18 02:23] LABS: URINE APPEARANCE CLEAR (CLEAR); URINE BILIRUBIN NEG (NEG); URINE COLOR YELLOW; URINE EPITHELIAL CELL AUTO >30 /lpf (0-5); URINE NITRITE NEG (NEG); URINE PH 6.5 (4.5-7.5); URINE SPECIFIC GRAVITY 1.017 (1.000-1.030); UROBILINOGEN NEG (NEG)
[2016-10-18 02:25] LABS: MANUAL MICROSCOPIC REQUIRED? NO; REVIEW REQ? NO
[2016-10-18 02:46] LABS: ALT/SGPT 14 U/L (12-78); AST/SGOT 11 U/L (15-37); BLOOD UREA NITROGEN 19 mg/dl (7-18); CARBON DIOXIDE 31 mmol/L (21-32); CHLORIDE 98 mmol/L (98-107); CREATININE 0.85 mg/dl (0.60-1.20); GLUCOSE 149 mg/dl (70-99); POTASSIUM 4.1 mmol/L (3.5-5.1); SODIUM 137 mmol/L (136-145)
[2016-10-18 02:51] LABS: ALKALINE PHOSPHATASE 127 U/L (45-117); CKMB/CK RATIO 1.4 (0-3.0)
[2016-10-18] MEDS ORDERED: NITROGLYCERIN 0.4 MG SL PER TAB CHARGE SL PRN (03:45)
[2016-10-18] MEDS ORDERED: POLYETHYLENE (MIRALAX) 17 GM PACK PO PRN (03:45)
[2016-10-18] MEDS ORDERED: MAGNESIUM HYDROXIDE SUSP 30 ML UDC PO PRN (03:45)
[2016-10-18] MEDS ORDERED: ACETAMINOPHEN 325 MG TAB PO PRN (03:45)
[2016-10-18] MEDS ORDERED: ALUMINUM/MAGNESIUM/SIMETH (MAALOX MAX) 30 ML UDC PO PRN (03:45)
[2016-10-18] MEDS ORDERED: ONDANSETRON INJ 2 MG/ML 2 ML VIAL IV PRN (03:45)
[2016-10-18] MEDS ORDERED: MAGN400T5 PO (04:14)
[2016-10-18] MEDS ORDERED: GLUCAGON FOR INJ 1 MG VIAL SQ PRN (04:30)
[2016-10-18] MEDS ORDERED: GLUCOSE 10 TABS/TUBE PO PRN (04:30)
[2016-10-18] MEDS ORDERED: GLUCOSE 40% GEL 15 GM TUBE PO PRN (04:30)
[2016-10-18] MEDS ORDERED: DEXTROSE 50% 50 ML SYR IV PRN (04:30)
[2016-10-18 04:40] VITALS: BP 160/75; PULSE 79; TEMP 36.6; O2SAT 96; BMI 28.4
[2016-10-18] MEDS: SODIUM CHLORIDE 0.9% 1000ML 1,000 ML IV SCH ×2 (05:20→20:45)
--- NOTE | 2016-10-18 05:51 | HISTORY & PHYSICAL EXAMINATION ---
DATE OF ADMISSION: 10/18/2016 CHIEF COMPLAINT: Confusion. HISTORY OF PRESENT ILLNESS: This is an 80-year-old female, with a past medical history significant for type 2 diabetes, history of UTIs, history of gout, chronic kidney disease stage 3, hyperlipidemia who was recently in the hospital last month with encephalopathy secondary to UTI and was discharged home. She lives alone, son lives close by. She was brought in by son because of confusion. As per son, apparently the patient was doing okay earlier in the day, but when he came back later today, the door of the house was open, patient was lying on the couch, shaking, covered in her own urine, had some slurred speech and when he checked her sugar level it was 85. The patient was trying to get up, tried to walk, she fell down and hit her right elbow and right knee. Currently, is complaining of some pain in the right knee. She denies any headaches. No blurred vision, no dizziness, no chest pain, no shortness of breath, no cough, no fever, no chills, no nausea, no vomiting and no abdominal pain. Normal bowel and bladder movements. As per son blood sugars was 85 at that time. He says that her sugars are generally in the 150s range; he thinks that 85 was somewhat low to her. Currently she is resting comfortably, alert, oriented x3 and hemodynamically stable and mental status at baseline. ALLERGIES: TO NSAIDS ,PCNS PAST MEDICAL HISTORY: As mentioned above. PAST SURGICAL HISTORY: Ureteral stent placement bilaterally, appendectomy, cholecystectomy, repair of rectocele and total hysterectomy. MEDICATIONS: The patient is on alprazolam 0.25 mg one tablet 30 minutes before flying, Lantus 30 units b.i.d., magnesium oxide 400 mg p.o. daily, Lipitor 40 mg p.o. daily, metformin 1000 mg p.o. b.i.d., lisinopril/hydrochlorothiazide 20/12.5 mg p.o. b.i.d., glipizide 30 mg p.o. b.i.d., allopurinol 300 mg p.o. daily and potassium citrate ER 30 mEq p.o. t.i.d. FAMILY HISTORY: Significant for; mother had MA and diabetes. Father had MA. SOCIAL HISTORY: . Lives alone. Son lives close by. Smoked one pack a day for 55 years, began at the age of 24. No alcohol use. No drug use. REVIEW OF SYMPTOMS: As per HPI. Rest of the review of symptoms is negative. PHYSICAL EXAMINATION: GENERAL: The patient is of moderate built, not in distress. VITAL SIGNS: Temperature is 36.5, pulse 76, respiratory rate of 14, blood pressure 141/84 and oxygen 95% on room air. HEENT: No pallor, no icterus. Pupils are equal, round and reactive to light. NECK: No JVD, no neck masses, no carotid bruits. CARDIOVASCULAR: S1, S2 heard, regular rate and rhythm, no murmur, no gallop. RESPIRATORY: Clear to auscultation bilaterally. No wheezing, no crackles. ABDOMEN: Soft, bowel sounds present. Nontender. No distention. CENTRAL NERVOUS SYSTEM: Cranial nerves II-XII grossly intact. Nonfocal. EXTREMITIES: No edema. No erythema. LABORATORIES: WBC 16, hemoglobin of 14, hematocrit 41.7 and platelets 385. Sodium 137, potassium 4.1, chloride 98, BUN 19, creatinine 0.8, serum glucose 119, calcium 9, total bilirubin 0.6, direct bilirubin 0.2, AST 11, ALT 14, alkaline phosphatase 127, total creatine kinase 37 and troponin I less than 0.015. Urinalysis is unremarkable. CT of the head; no acute findings. EKG; normal sinus rhythm with a rate of 74, nonspecific ST changes are seen. ASSESSMENT AND PLAN: This is an 80-year-old female, who presents with confusion. 1. Confusion, encephalopathy, possibly secondary to hypoglycemia sugars were 85 as per son and they are somewhat lower to the patient. Currently, the patient is resting comfortably, asymptomatic and at baseline. Recently she had urinary tract infection, urinalysis is unremarkable at this time, but she has leukocytosis. We will follow urine cultures and also chest x-ray, gentle fluids. Will f/u [facility], and also follow EEG as patient has incontinence of urine. Tele monitoring. Physical therapy and occupational therapy. Social Service to help with discharge planning. The patient's son wants patinet to go to rehab before going home. 2. Diabetes. Continue home Lantus. Hold metformin and glipizide . ISS. Follow blood sugars. Follow HbA1c levels. 3. History of hypertension. Continue lisinopril/hydrochlorothiazide Monitor the blood pressure in the hospital. 4. History of hyperlipidemia. Continue statin. 5. Hypomagnesemia and hypokalemia. Continue supplements. Monitor the labs. 6. History of gout, continue allopurinol. 7. Chronic kidney disease stage 3, creatinine is at baseline. Follow the labs. 9 DVT prophylaxis, SCDs and TEDs for now. 10. Disposition: Monitor on tele floor. PT/OT prior to discharge. Social service for discharge planning. Son likes the patient to go to rehab prior to going home. Code status, level 1. Full code. MTDD
[2016-10-18 06:32] LABS: ESTIMATED AVERAGE GLUCOSE 200 mg/dl; HA1C FLAG Normal (Normal)
--- NOTE | 2016-10-18 06:33 | DIAGNOSTIC IMAGING REPORT ---
CT HEAD WITHOUT CONTRAST (CT) CLINICAL HISTORY: Confusion, shaking, altered mental status, fall. COMPARISON STUDY: 09/24/2016 TECHNIQUE: Axial CT of the brain is performed from the vertex to the skull base. IV contrast was not administered for this examination. CT DOSE: 614.27 mGy.cm FINDINGS: No intra or extra-axial mass lesions are visualized. There is no CT evidence of acute cortical infarction. There is no evidence of midline shift. There is no acute hemorrhage. No calvarial fractures are visualized. There are patchy white matter hypodensities likely on a small vessel basis. There is no evidence of pathologic ventricular dilatation. There is no evidence of acute sinusitis IMPRESSION: No acute intracranial findings Electronically signed by: Joshua Sanderson M.D. 10/18/2016 6:31 AM Dictated Date/Time: 10/18/2016 6:30 AM
--- NOTE | 2016-10-18 07:39 | DIAGNOSTIC IMAGING REPORT ---
CHEST ONE VIEW PORTABLE CLINICAL HISTORY: INFILTRATE pneumonia COMPARISON STUDY: 09/23/2016 FINDINGS: Lungs are clear. Diaphragms are smooth. IMPRESSION: No acute process. Electronically signed by: Jersey Turpin M.D. 10/18/2016 7:38 AM Dictated Date/Time: 10/18/2016 7:37 AM
[2016-10-18 07:58] VITALS: BP 134/59; PULSE 86; TEMP 36.8; O2SAT 93
--- NOTE | 2016-10-18 08:04 | Progress Note ---
Internal Med Progress Note Date of Service: October 18, 2016. Provider Documentation: SUBJECTIVE: Seen and examined at bedside. States having right knee pain since fall yesterday. Has nausea but denies vomiting. Denies chest pain, SOB, abd pain, dizziness, diarrhea. Offers no other complaints. OBJECTIVE: Vital Signs-as noted below Physical Exam: General Appearance:Moderately built and nourished, no apparent distress +Tremor Head: normocephalic, Atraumatic Eyes: normal inspection, EOMI, PERRL Neck: supple, Trachea midline Respiratory/Chest: Normal breath sounds, CTA Cardiovascular: S1, S2, No murmur Abdomen/GI:Soft, Non tender, Bowel sounds present Extremities/Musculoskelatal:normal inspection, no edema Neurologic/Psych:grossly no focal neurological deficits Skin: normal color, warm Lab data as noted below. ASSESSMENT & PLAN: Encephalopathy: Likely secondary to hypoglycemia CT head, CXR, UA: Unremarkable Follow up cultures EEG:pending Check Orthostatics Continue IVF Monitor blood sugar levels PT/OT DM II: Hold metformin, glipizide Continue ISS, Accu checks A1C:8.6 Hypertension: Continue lisinopril/hydrochlorothiazide Monitor Hyperlipidemia: Continue statin H/O Hypomagnesemia and hypokalemia: Continue supplements H/O Gout: continue allopurinol CKD III: cr at baseline Monitor DVT Px: SCDs Code status: Full code. Disposition: PT/OT, Social service consulted Plan to discharge to rehab if qualifies (Son requests rehab placement) Vital Signs: Date Time Temp Pulse Resp B/P Pulse Ox O2 Delivery O2 Flow Rate FiO2 10/18/16 07:58 36.8 86 19 134/59 93 10/18/16 04:40 36.6 79 18 160/75 96 Room Air 10/18/16 04:24 67 14 133/84 95 10/18/16 03:23 76 14 141/84 95 Room Air 10/18/16 01:49 97 Room Air 10/18/16 01:49 86 10/18/16 01:31 36.5 89 20 127/68 94 Room Air Lab Results: Results Past 24 Hours Test 10/18/16 01:45 10/18/16 01:55 10/18/16 05:05 10/18/16 06:35 Range/Units Bedside Glucose 119 158 70-90 mg/dl White Blood Count 16.41 4.8-10.8 K/uL Red Blood Count 4.83 4.2-5.4 M/uL Hemoglobin 14.0 12.0-16.0 g/dL Hematocrit 41.7 37-47 % Mean Corpuscular Volume 86.3 80-100 fL Mean Corpuscular Hemoglobin 29.0 25-34 pg Mean Corpuscular Hemoglobin Concent 33.6 32-36 g/dl Platelet Count 385 130-400 K/uL Mean Platelet Volume 8.8 7.4-10.4 fL Neutrophils (%) (Auto) 82.1 % Lymphocytes (%) (Auto) 13.7 % Monocytes (%) (Auto) 3.0 % Eosinophils (%) (Auto) 0.7 % Basophils (%) (Auto) 0.2 % Neutrophils # (Auto) 13.47 1.4-6.5 K/uL Lymphocytes # (Auto) 2.24 1.2-3.4 K/uL Monocytes # (Auto) 0.50 0.11-0.59 K/uL Eosinophils # (Auto) 0.12 0-0.5 K/uL Basophils # (Auto) 0.03 0-0.2 K/uL RDW Standard Deviation 44.0 36.4-46.3 fL RDW Coefficient of Variation 14.0 11.5-14.5 % Immature Granulocyte % (Auto) 0.3 % Immature Granulocyte # (Auto) 0.05 0.00-0.02 K/uL Urine Color YELLOW Urine Appearance CLEAR CLEAR Urine pH 6.5 4.5-7.5 Urine Specific Golden 1.017 1.000-1.030 Urine Protein 1+ NEG Urine Glucose (UA) NEG NEG Urine Ketones NEG NEG Urine Occult Blood NEG NEG Urine Nitrite NEG NEG Urine Bilirubin NEG NEG Urine Urobilinogen NEG NEG Urine Leukocyte Esterase NEG NEG Urine WBC (Auto) 1-5 0-5 /hpf Urine RBC (Auto) 0-4 0-4 /hpf Urine Hyaline Casts (Auto) 5-10 0-5 /lpf Urine Epithelial Cells (Auto) >30 0-5 /lpf Urine Bacteria (Auto) NEG NEG Sodium Level 137 136-145 mmol/L Potassium Level 4.1 3.5-5.1 mmol/L Chloride Level 98 98-107 mmol/L Carbon Dioxide Level 31 21-32 mmol/L Anion Gap 8.0 3-11 mmol/L Blood Urea Nitrogen 19 7-18 mg/dl Creatinine 0.85 0.60-1.20 mg/dl Est Creatinine Clear Calc Drug Dose 53.4 ml/min Estimated GFR () 74.5 Estimated GFR (Non- 64.3 BUN/Creatinine Ratio 22.0 10-20 Random Glucose 149 70-99 mg/dl Calcium Level 9.0 8.5-10.1 mg/dl Total Bilirubin 0.6 0.2-1 mg/dl Direct Bilirubin 0.2 0-0.2 mg/dl Aspartate Amino Transf (AST/SGOT) 11 15-37 U/L Alanine Aminotransferase (ALT/SGPT) 14 12-78 U/L Alkaline Phosphatase 127 45-117 U/L Total Creatine Kinase 37 26-192 U/L Creatine Kinase MB 0.5 0.5-3.6 ng/ml Creatine Kinase MB Ratio 1.4 0-3.0 Troponin I < 0.015 0-0.045 ng/ml Total Protein 7.8 6.4-8.2 gm/dl Albumin 3.8 3.4-5.0 gm/dl Estimated Average Glucose 200 mg/dl Hemoglobin A1c 8.6 4.5-5.6 % Microbiology Results 10/18/16 Urine Culture, Received Pending
[2016-10-18] MEDS: ALLOPURINOL 300 MG TAB PO SCH (08:30)
[2016-10-18] MEDS: MAGNESIUM OXIDE 400 MG TAB PO SCH (08:30)
[2016-10-18] MEDS: LISINOPRIL/HCTZ 20/12.5MG TAB PO SCH ×2 (08:30→20:46)
[2016-10-18] MEDS: POTASSIUM CITRATE 10 MEQ TAB PO SCH ×3 (08:30→20:46)
[2016-10-18] MEDS: INSULIN ASPART 100 UNITS/ML 3 ML PEN SC SCH ×4 (08:32→20:12)
[2016-10-18] MEDS: INSULIN GLARGINE SOLOSTAR 100 UNITS/ML 3 ML PEN SQ SCH ×2 (08:32→20:47)
--- NOTE | 2016-10-18 11:46 | ELECTROENCEPHALOGRAPH REPORT ---
CLINICAL DIAGNOSIS: Change in mental status. EEG DIAGNOSIS: Mildly diffusely abnormal EEG during wakefulness. Study hampered by quite a bit of muscle and movement artifact however. DESCRIPTION OF TRACING: This EEG was done as a bedside recording with simultaneous video analysis of patient movement and behavior. Photic stimulation was performed. Hyperventilation was not. Drowsiness and light sleep were not clearly recorded. Under these conditions, there is evidence for what appears to be a slightly slow background rhythm in the upper theta range of about 8 Hz of maximum frequency and about 30 microvolts of maximum amplitude. This is maximum posterior head regions and bilaterally symmetrical. Polymorphic mid to slightly lower frequency theta activity is seen over all head regions without clear focal or regional predominance. Anterior head region maximum bilaterally symmetrical low voltage fast activity in the beta range is present. Unfortunately there is quite a bit of head rolling and other movement artifacts episodically throughout the tracing which does interfere at times with interpretation and may mask actual potentially epileptogenic activity, although the latter is not clearly seen between these events. Photic stimulation provoked some minimal driving response without photomyogenic or photoparoxysmal component. Again, during artifact free episodes of wakefulness there is no evidence for clearcut potentially epileptogenic activity in the form of polyspike or spike wave bursts, focal sharp waves or focal spikes. INTERPRETATION: Overall, then this EEG reveals mild nonspecific generalized abnormalities consistent with nonspecific encephalopathy and without unequivocal potentially epileptogenic features.
[2016-10-18 11:50] VITALS: BP 142/81; PULSE 83; TEMP 36.7; O2SAT 96
[2016-10-18 14:32] VITALS: BMI 28.4
[2016-10-18 15:57] VITALS: BP 113/55; PULSE 67; TEMP 37.3; O2SAT 96
[2016-10-18 16:00] VITALS: O2SAT 95
[2016-10-18 18:55] VITALS: BP 130/48; PULSE 69; TEMP 36.7; O2SAT 95
[2016-10-18] MEDS: ATORVASTATIN 40 MG TAB PO SCH (20:46)
[2016-10-19 00:13] VITALS: BP 117/53; PULSE 68; TEMP 36.7; O2SAT 95
[2016-10-19 04:03] VITALS: BP 120/69; PULSE 78; TEMP 36.8; O2SAT 95
[2016-10-19 06:24] LABS: BASO % 0.2 %; BASO ABS # 0.02 K/uL (0-0.2); COMPLETE YES; EOS % 1.3 %; HEMATOCRIT 35.5 % (37-47); IG% 0.2 %; LYMPH ABS # 2.57 K/uL (1.2-3.4); MEAN CELL VOLUME 86.2 fL (80-100); MEAN CORPUSCULAR HEMOGLOBIN 28.6 pg (25-34); MEAN CORPUSCULAR HGB CONC 33.2 g/dl (32-36); MEAN PLATELET VOLUME 8.5 fL (7.4-10.4); NEUT % 70.3 %; PLATELET COUNT 293 K/uL (130-400); RED BLOOD COUNT 4.12 M/uL (4.2-5.4); WHITE BLOOD COUNT 11.19 K/uL (4.8-10.8)
[2016-10-19] MEDS: INSULIN ASPART 100 UNITS/ML 3 ML PEN SC SCH ×4 (07:00→20:45)
[2016-10-19 07:27] LABS: BUN/CREATININE RATIO 23.3 (10-20); CALCIUM 8.8 mg/dl (8.5-10.1); CREATININE 0.68 mg/dl (0.60-1.20); MAGNESIUM 1.5 mg/dl (1.8-2.4); POTASSIUM 3.5 mmol/L (3.5-5.1)
[2016-10-19 07:30] VITALS: BP 152/81; PULSE 77; TEMP 36.6; O2SAT 96
[2016-10-19] MEDS: SODIUM CHLORIDE 0.9% 1000ML 1,000 ML IV SCH ×2 (07:40→20:59)
[2016-10-19] MEDS: POTASSIUM CITRATE 10 MEQ TAB PO SCH ×3 (07:41→21:00)
[2016-10-19] MEDS: LISINOPRIL/HCTZ 20/12.5MG TAB PO SCH ×2 (07:41→21:00)
[2016-10-19] MEDS: ALLOPURINOL 300 MG TAB PO SCH (07:41)
--- NOTE | 2016-10-19 08:25 | Progress Note ---
Internal Med Progress Note Date of Service: October 19, 2016. Provider Documentation: SUBJECTIVE: Seen and examined at bedside. States doing well. Offers no complaints. Hypoglycemic this morning but asymptomatic. Confusion resolved. Denies chest pain, SOB, abd pain, dizziness, diarrhea. Offers no other complaints. OBJECTIVE: Vital Signs-as noted below Physical Exam: General Appearance:Moderately built and nourished, no apparent distress +Tremor Head: normocephalic, Atraumatic Eyes: normal inspection, EOMI, PERRL Neck: supple, Trachea midline Respiratory/Chest: Normal breath sounds, CTA Cardiovascular: S1, S2, No murmur Abdomen/GI:Soft, Non tender, Bowel sounds present Extremities/Musculoskelatal:normal inspection, no edema Neurologic/Psych:grossly no focal neurological deficits Skin: normal color, warm Lab data as noted below. ASSESSMENT & PLAN: Encephalopathy: Likely secondary to hypoglycemia CT head, EEG, CXR, UA: Unremarkable Follow up cultures:pending Check Orthostatics Continue IVF Monitor blood sugar levels PT/OT DM II: Hold metformin, glipizide Continue ISS, Accu checks A1C:8.6 Decrease Lantus Hold morning NovoLog Consult Pharmacy for Glycemic management Hypertension: Continue lisinopril/hydrochlorothiazide Monitor Hyperlipidemia: Continue statin H/O Hypomagnesemia and hypokalemia: Continue supplements H/O Gout: continue allopurinol CKD III: cr at baseline Monitor DVT Px: SCDs Code status: Full code. Disposition: PT/OT, Social service consulted Needs rehab Placement Plan to discharge to rehab if accepted. Vital Signs: Date Time Temp Pulse Resp B/P Pulse Ox O2 Delivery O2 Flow Rate FiO2 10/19/16 07:30 36.6 77 20 152/81 96 Room Air 10/19/16 04:03 36.8 78 18 120/69 95 Room Air 10/19/16 04:00 Room Air 10/19/16 00:13 36.7 68 19 117/53 95 Room Air 10/19/16 00:01 Room Air 10/18/16 20:00 Room Air 10/18/16 18:55 36.7 69 18 130/48 95 Room Air 10/18/16 16:00 95 Room Air 10/18/16 15:57 37.3 67 18 113/55 96 Room Air 10/18/16 12:00 Room Air 10/18/16 11:50 36.7 83 20 142/81 96 Room Air Lab Results: Results Past 24 Hours Test 10/18/16 11:07 10/18/16 15:59 10/18/16 20:04 10/19/16 06:09 Range/Units Bedside Glucose 169 130 134 70-90 mg/dl White Blood Count 11.19 4.8-10.8 K/uL Red Blood Count 4.12 4.2-5.4 M/uL Hemoglobin 11.8 12.0-16.0 g/dL Hematocrit 35.5 37-47 % Mean Corpuscular Volume 86.2 80-100 fL Mean Corpuscular Hemoglobin 28.6 25-34 pg Mean Corpuscular Hemoglobin Concent 33.2 32-36 g/dl Platelet Count 293 130-400 K/uL Mean Platelet Volume 8.5 7.4-10.4 fL Neutrophils (%) (Auto) 70.3 % Lymphocytes (%) (Auto) 23.0 % Monocytes (%) (Auto) 5.0 % Eosinophils (%) (Auto) 1.3 % Basophils (%) (Auto) 0.2 % Neutrophils # (Auto) 7.87 1.4-6.5 K/uL Lymphocytes # (Auto) 2.57 1.2-3.4 K/uL Monocytes # (Auto) 0.56 0.11-0.59 K/uL Eosinophils # (Auto) 0.15 0-0.5 K/uL Basophils # (Auto) 0.02 0-0.2 K/uL RDW Standard Deviation 44.1 36.4-46.3 fL RDW Coefficient of Variation 14.1 11.5-14.5 % Immature Granulocyte % (Auto) 0.2 % Immature Granulocyte # (Auto) 0.02 0.00-0.02 K/uL Sodium Level 140 136-145 mmol/L Potassium Level 3.5 3.5-5.1 mmol/L Chloride Level 106 98-107 mmol/L Carbon Dioxide Level 28 21-32 mmol/L Anion Gap 6.0 3-11 mmol/L Blood Urea Nitrogen 16 7-18 mg/dl Creatinine 0.68 0.60-1.20 mg/dl Est Creatinine Clear Calc Drug Dose 65.9 ml/min Estimated GFR () 95.1 Estimated GFR (Non- 82.0 BUN/Creatinine Ratio 23.3 10-20 Random Glucose 47 70-99 mg/dl Calcium Level 8.8 8.5-10.1 mg/dl Magnesium Level 1.5 1.8-2.4 mg/dl Test 10/19/16 07:33 Range/Units Bedside Glucose 67 70-90 mg/dl
[2016-10-19] MEDS ORDERED: PHARMACY GLYCEMIC MGMT CONSULT PRN (08:30)
[2016-10-19] MEDS ORDERED: MAGNESIUM SULFATE 1GM / D5W 1 GM in PREMIXED IN D5W 100 ML IV ONE (08:45)
[2016-10-19 11:24] VITALS: BP_SYST 125; BP_SYST 133; BP_SYST 135; BP_DIAS 55; BP_DIAS 65; BP_DIAS 74; PULSE 56; PULSE 67; PULSE 75; TEMP 37.2; O2SAT 97
[2016-10-19] MEDS: MAGNESIUM OXIDE 400 MG TAB PO SCH (14:12)
--- NOTE | 2016-10-19 14:15 | Pharmacy Progress Note ---
Glycemic Control Intl Consult Date of Service October 19, 2016. Scope Glycemic Pharmacist consulted by Dr Leonard on 10/19/16 for glycemic control and to write orders per [facility] inpatient glycemic control protocol Objective Weight (Kilograms): 78.800 Accuchecks BSG (last 24hrs): Test 10/18/16 15:59 10/18/16 20:04 10/19/16 06:09 10/19/16 07:06 Bedside Glucose 130 mg/dl (70-90) 134 mg/dl (70-90) 60 mg/dl (70-90) Random Glucose 47 mg/dl (70-99) Test 10/19/16 07:33 10/19/16 08:40 10/19/16 11:14 Bedside Glucose 67 mg/dl (70-90) 157 mg/dl (70-90) 158 mg/dl (70-90) Laboratory Data (last 24hrs) HbA1c Test 10/18/16 05:05 Hemoglobin A1c 8.6 % (4.5-5.6) H Recent Pertinent Medications Outpatient Anti-diabetic Regimen: * Lantus 38 units SQ BID * Metformin 1,000mg PO BIDM * Glipizide 10mg PO BID The patient is currently receiving: * Basal insulin: Lantus 38 units every 12 hours * Correctional Insulin: Novolog Correction per scale ACHS Goal Range: Low 120 mg/dL - High 160 mg/dL Correction Factor: 30 mg/dL/unit * Prandial insulin: Per carb ratio of 1 unit per 10 grams CHO consumed * Oral Agents: On hold for admission Assessment & Plan ASSESSMENT: * 80yo T2DM female with adequate degree of outpatient control per recent A1c * Pt with hypoglycemia this morning secondary to too much basal insulin * Outpatient basal insulin dosing continued on admission while oral agents on hold. Likely, this outpatient "basal" insulin dosing is covering some prandial needs which caused a low inhouse with controlled CHO intake. * Patient is currently receiving an average of 88 units of insulin per day * 76 units of basal insulin * 12 units of prandial/correctional insulin * BSGs ranging 47 - 169 over the past 24hrs * Insulin regimen will need adjusted secondary to: * AM Fasting BSG = 47mg/dl therefore Basal insulin needs decreased * Total daily dose = 88 units/day. Regimen is heavily weighted towards basal insulin (76 of 88 units) therefore need to evenly re-distribute regimen 50%:50% basal:prandial to prevent hypo/hyperglycemia * Post-prandial BSGs are in range, no changes needed to CF/CR * ADA & AACE recommend a goal blood sugar range 140-180 mg/dl for the majority of critically ill & non-critically ill patients. However, more stringent targets may be selected in individual cases. PLAN FOR INPATIENT GLYCEMIC CONTROL: change SQ basal bolus insulin regimen based on a total daily dose of ~ 90 units/day * Continue to hold outpatient oral diabetes medications * Basal insulin * DECREASE Lantus to 25 units SQ BID (was 38 units bid) * Bolus Insulin * NO CHANGE, Continue NovoLog per scale ACHS or Q6hrs while NPO * Goal Range: Low 120 mg/dL - High 160 mg/dL * Correction Factor: 30 mg/dL/unit * Nutritional / Prandial insulin per carb ratio of 1 unit per 10 grams CHO consumed * Please note that the plan above was derived based on current level of insulin resistance and hospital stress. These recommendations are appropriate for inpatient admission only. Plan of care upon discharge will need to be reassessed to avoid potential outpatient hypo/hyperglycemia. Thank you.
[2016-10-19] MEDS: INSULIN GLARGINE SOLOSTAR 100 UNITS/ML 3 ML PEN SQ SCH ×2 (14:17→21:02)
[2016-10-19 15:44] VITALS: BP 120/76; PULSE 64; TEMP 36.9; O2SAT 96
[2016-10-19 15:56] VITALS: Ht 162.6 cm; Wt 77.4 kg
[2016-10-19 19:48] VITALS: BP 122/64; PULSE 76; TEMP 36.9; O2SAT 96
[2016-10-19] MEDS: ATORVASTATIN 40 MG TAB PO SCH (21:00)
[2016-10-20] VITALS (9 sets, daily range): BP systolic 90–148; BP diastolic 59–82; PULSE 61–74; TEMP 36.4–37; O2SAT 93–97
[2016-10-20 06:28] LABS: BASO % 0.2 %; BASO ABS # 0.02 K/uL (0-0.2); COMPLETE YES; EOS % 1.5 %; HEMATOCRIT 36.5 % (37-47); IG% 0.2 %; LYMPH % 19.2 %; LYMPH ABS # 2.31 K/uL (1.2-3.4); MEAN CELL VOLUME 85.9 fL (80-100); MEAN CORPUSCULAR HGB CONC 32.6 g/dl (32-36); MEAN PLATELET VOLUME 8.5 fL (7.4-10.4); MONO % 3.9 %; PLATELET COUNT 318 K/uL (130-400); RED BLOOD COUNT 4.25 M/uL (4.2-5.4); WHITE BLOOD COUNT 12.03 K/uL (4.8-10.8)
[2016-10-20 06:57] LABS: BUN/CREATININE RATIO 22.5 (10-20); CALCIUM 8.6 mg/dl (8.5-10.1); CREATININE 0.74 mg/dl (0.60-1.20); MAGNESIUM 1.8 mg/dl (1.8-2.4); POTASSIUM 3.9 mmol/L (3.5-5.1)
[2016-10-20] MEDS: INSULIN ASPART 100 UNITS/ML 3 ML PEN SC SCH ×4 (07:00→20:48)
[2016-10-20] MEDS: POTASSIUM CITRATE 10 MEQ TAB PO SCH ×3 (08:54→19:19)
[2016-10-20] MEDS: LISINOPRIL/HCTZ 20/12.5MG TAB PO SCH ×2 (08:54→19:19)
[2016-10-20] MEDS: MAGNESIUM OXIDE 400 MG TAB PO SCH (08:54)
[2016-10-20] MEDS: ALLOPURINOL 300 MG TAB PO SCH (08:54)
[2016-10-20] MEDS: SODIUM CHLORIDE 0.9% 1000ML 1,000 ML IV SCH (10:31)
--- NOTE | 2016-10-20 11:03 | Progress Note ---
Internal Med Progress Note Date of Service: October 20, 2016. Provider Documentation: SUBJECTIVE: Patient is doing well. AAOX3. Denies any complaints. No dysuria, urinary frequency, flank pain, fever, chills, nausea, vomiting. No chest pain, SOB, cough. Tele- Paroxysmal Atrial Fibrillation- rate controlled, but overall NSR OBJECTIVE: Vital Signs-as noted below Exam: General Appearance:Moderately built and nourished, no apparent distress Head: normocephalic, Atraumatic Respiratory/Chest: Normal breath sounds, CTA Cardiovascular: S1, S2, No murmur Abdomen/GI:Soft, Non tender, Bowel sounds present Extremities/Musculoskelatal:normal inspection, no edema Neurologic/Psych:grossly no focal neurological deficits Lab data as noted below. ASSESSMENT & PLAN: ASSESSMENT & PLAN: EPISODIC CONFUSION/ENCEPHALOPATHY Likely secondary to hypoglycemic episode. Per son, blood sugar was 85 which is low for her. Had 2 hyopglycemia episodes while in the hospital. -Today AM, blood sugar 61, but overall uncontrolled with HBA1C 8.6 -Work up- CT head, EEG, CXR, UA: Unremarkable; Orthostats- negative -Okay to discontinue IVF as tolerating PO well -PT/OT- recommends rehab DM II WITH HYPOGLYCEMIC EPISODES/FLUCTUATIONS Likely episodic confusion secondary to hypoglycemic episode. Per son, blood sugar was 85 which is low for her. Had 2 hyopglycemia episodes while in the hospital. Hold metformin, glipizide (will dc on discharge) -Discussed with pharmacy- will decrease lantus to 38 units q HS from BID which was her home regimen. Discontinue Glipizide on discharge. Will need further adjustments outpatient as HBA1C 8.6 and blood sugar does go up to 300s at home per son. -ISS, Accuchecks. -Monitor blood sugar levels closely at the rehab and outpatient -Appreciate pharmacy glycemic mx PAROXYSMAL ATRIAL FIBRILLATION -On monitor- noted to have paroxysmal Atrial fibrillation, lasting for few minutes , rate controlled, but overall has been in NSR. -Does have past history of Atrial fibrillation, not on ASA/Coumadin likely due to allergy/risk of fall per son. CHADSVASC- 5 --> At risk of Stroke Explained to patient's son about the high risk of stroke, but as risks outweigh the benefit, would not put her on coumadin. May consider Aspirin---> will defer to PCP outpatient. HYPERTENSION- -Continue lisinopril/hydrochlorothiazide -Monitor HYPERLIPIDEMIA -Continue statin H/O HYPOMAGNESEMIA/HYPOKALEMIA -Continue supplements H/O GOUT: -Continue allopurinol CKD III: cr at baseline Monitor DVT Px: SCDs CODE STATUS Full code. DISPOSITION PT/OT, Social service consulted Needs rehab Placement- AWAITING PLACEMENT, OKAY TO DISCHARGE FROM [facility] Vital Signs: Date Time Temp Pulse Resp B/P Pulse Ox O2 Delivery O2 Flow Rate FiO2 10/20/16 08:00 Room Air 10/20/16 07:22 36.4 74 18 125/65 94 Room Air 10/20/16 04:00 37.0 61 18 144/71 93 Room Air 10/20/16 04:00 Room Air 10/20/16 00:12 37.0 62 18 140/67 93 Room Air 10/20/16 00:01 Room Air 10/19/16 20:00 Room Air 10/19/16 19:48 36.9 76 18 122/64 96 10/19/16 16:00 Room Air 10/19/16 15:44 36.9 64 18 120/76 96 10/19/16 12:00 Room Air 10/19/16 11:24 37.2 56 21 133/65 97 Room Air 67 125/74 75 135/55 Lab Results: Results Past 24 Hours Test 10/19/16 11:14 10/19/16 16:19 10/19/16 20:17 10/20/16 06:10 Range/Units Bedside Glucose 158 114 108 70-90 mg/dl White Blood Count 12.03 4.8-10.8 K/uL Red Blood Count 4.25 4.2-5.4 M/uL Hemoglobin 11.9 12.0-16.0 g/dL Hematocrit 36.5 37-47 % Mean Corpuscular Volume 85.9 80-100 fL Mean Corpuscular Hemoglobin 28.0 25-34 pg Mean Corpuscular Hemoglobin Concent 32.6 32-36 g/dl Platelet Count 318 130-400 K/uL Mean Platelet Volume 8.5 7.4-10.4 fL Neutrophils (%) (Auto) 75.0 % Lymphocytes (%) (Auto) 19.2 % Monocytes (%) (Auto) 3.9 % Eosinophils (%) (Auto) 1.5 % Basophils (%) (Auto) 0.2 % Neutrophils # (Auto) 9.03 1.4-6.5 K/uL Lymphocytes # (Auto) 2.31 1.2-3.4 K/uL Monocytes # (Auto) 0.47 0.11-0.59 K/uL Eosinophils # (Auto) 0.18 0-0.5 K/uL Basophils # (Auto) 0.02 0-0.2 K/uL RDW Standard Deviation 43.5 36.4-46.3 fL RDW Coefficient of Variation 14.1 11.5-14.5 % Immature Granulocyte % (Auto) 0.2 % Immature Granulocyte # (Auto) 0.02 0.00-0.02 K/uL Sodium Level 141 136-145 mmol/L Potassium Level 3.9 3.5-5.1 mmol/L Chloride Level 106 98-107 mmol/L Carbon Dioxide Level 30 21-32 mmol/L Anion Gap 5.0 3-11 mmol/L Blood Urea Nitrogen 17 7-18 mg/dl Creatinine 0.74 0.60-1.20 mg/dl Est Creatinine Clear Calc Drug Dose 60.1 ml/min Estimated GFR () 88.1 Estimated GFR (Non- 76.0 BUN/Creatinine Ratio 22.5 10-20 Random Glucose 53 70-99 mg/dl Calcium Level 8.6 8.5-10.1 mg/dl Magnesium Level 1.8 1.8-2.4 mg/dl Test 10/20/16 06:50 10/20/16 07:26 Range/Units Bedside Glucose 61 116 70-90 mg/dl
--- NOTE | 2016-10-20 11:13 | Pharmacy Progress Note ---
Glycemic Control: Progress Nt Date of Service October 20, 2016. Scope Glycemic Pharmacist consulted by Dr Leonard on 10/19/16 for glycemic control and to write orders per [facility] inpatient glycemic control protocol. Objective Accuchecks BSG (last 24hrs): Test 10/19/16 11:14 10/19/16 16:19 10/19/16 20:17 10/20/16 06:10 Bedside Glucose 158 mg/dl (70-90) 114 mg/dl (70-90) 108 mg/dl (70-90) Random Glucose 53 mg/dl (70-99) Test 10/20/16 06:50 10/20/16 07:26 Bedside Glucose 61 mg/dl (70-90) 116 mg/dl (70-90) Laboratory Data (last 24hrs) Test 10/20/16 06:10 Anion Gap 5.0 mmol/L BUN/Creatinine Ratio 22.5 Blood Urea Nitrogen 17 mg/dl Creatinine 0.74 mg/dl Potassium Level 3.9 mmol/L Sodium Level 141 mmol/L White Blood Count 12.03 K/uL Red Blood Count 4.25 M/uL Hemoglobin 11.9 g/dL Hematocrit 36.5 % Mean Corpuscular Volume 85.9 fL Mean Corpuscular Hemoglobin 28.0 pg Mean Corpuscular Hemoglobin Concent 32.6 g/dl Platelet Count 318 K/uL Mean Platelet Volume 8.5 fL Neutrophils (%) (Auto) 75.0 % Lymphocytes (%) (Auto) 19.2 % Monocytes (%) (Auto) 3.9 % Eosinophils (%) (Auto) 1.5 % Basophils (%) (Auto) 0.2 % Neutrophils # (Auto) 9.03 K/uL Lymphocytes # (Auto) 2.31 K/uL Monocytes # (Auto) 0.47 K/uL Eosinophils # (Auto) 0.18 K/uL Basophils # (Auto) 0.02 K/uL HbA1c: Test 10/18/16 05:05 Hemoglobin A1c 8.6 % (4.5-5.6) H Recent Pertinent Medications Outpatient Anti-diabetic Regimen: * Glipizide 10 mg PO bid, Metformin 1 gm PO BID, and Lantus 38 units SQ BID The patient is currently receiving: * Basal insulin: Lantus 25 units every 12 hours * Correctional Insulin: Novolog Correction per scale ACHS Goal Range: Low 120 mg/dL - High 160 mg/dL Correction Factor: 30 mg/dL/unit * Prandial insulin: Per carb ratio of 1 unit per 10 grams CHO consumed Risk Factors for Insulin Resistance: * Diet: type 2 diabetic diet Assessment & Plan ASSESSMENT: * ADA & AACE recommend a goal blood sugar range 140-180 mg/dl for the majority of critically ill & non-critically ill patients. However, more stringent targets may be selected in individual cases. However, more stringent targets may be selected in individual cases. Will utilize more stringent goal of 120- 160mg/dl based on patient age & comorbidities. Additionally, tighter glycemic control is warranted to facilitate wound/infection healing. * Ms Matos is an 80 y/o F admitted 10/18/16 for altered mental status and urinary incontinence. She was continued on her home Lantus dosing which lead to hypoglycemia on the morning of 10/19 and 10/20. Her Lantus dose was reduced yesterday to 25 units twice daily; she received a total of 55 units (total of 50 units of basal). Her blood sugars ranged from 47-158 yesterday. * Patient may be discharged today so plan is utilized to set up for discharge. A once a day Lantus dose will be utilized for ease of administration. As the patient remained stable yesterday, it is reasonable to suspect that true basal needs may be around 50 units of Lantus per day. However, this is a very heavy basal regimen so will reduce to home dose of 38 units units at bedtime. I spoke with Dr Hooks who confirmed patient has follow up with PCP. PLAN FOR INPATIENT GLYCEMIC CONTROL: * CHANGING Lantus to 38 units SQ HS * Continuing correction factor of 30 mg/dl/unit * Continuing carb ratio of 1 unit per 10 grams CHO consumed * Continuing goal range of Low 120 mg/dL - High 160 mg/dL RECOMMENDATIONS FOR DISCHARGE: * discontinue glipizide 10 mg PO BID (can contribute to hypoglycemia in the elderly) * patient most likely needs reduction in basal heavy regimen. While hospitalized , she can tolerate ~50 units/day of Lantus. Therefore reducing dose by 50% of home regimen is reasonable. Therefore patient could be discharge on Lantus 38 units HS with close follow-up. * Please note that the plan above was derived based on current level of insulin resistance and hospital stress. These recommendations are appropriate for inpatient admission only. Plan of care upon discharge will need to be reassessed to avoid potential outpatient hypo/hyperglycemia. Thank you.
[2016-10-20] MEDS ORDERED: INSULIN GLARGINE SOLOSTAR 100 UNITS/ML 3 ML PEN SQ SCH ×2 (17:00→21:00)
[2016-10-20] MEDS: ATORVASTATIN 40 MG TAB PO SCH (19:19)
[2016-10-21 06:58] LABS: BASO % 0.2 %; BASO ABS # 0.02 K/uL (0-0.2); COMPLETE YES; EOS % 1.8 %; HEMATOCRIT 35.2 % (37-47); IG% 0.3 %; LYMPH % 20.6 %; LYMPH ABS # 2.39 K/uL (1.2-3.4); MEAN CELL VOLUME 86.1 fL (80-100); MEAN CORPUSCULAR HEMOGLOBIN 28.4 pg (25-34); MEAN PLATELET VOLUME 8.8 fL (7.4-10.4); NEUT % 71.1 %; PLATELET COUNT 296 K/uL (130-400); RED BLOOD COUNT 4.09 M/uL (4.2-5.4); WHITE BLOOD COUNT 11.59 K/uL (4.8-10.8)
[2016-10-21 07:10] LABS: BUN/CREATININE RATIO 18.8 (10-20); CALCIUM 8.6 mg/dl (8.5-10.1); CREATININE 0.81 mg/dl (0.60-1.20); MAGNESIUM 1.7 mg/dl (1.8-2.4)
[2016-10-21 07:17] VITALS: BP 146/82; PULSE 62; TEMP 36.8; O2SAT 97
[2016-10-21] MEDS ORDERED: NICOTINE 14 MG/24 HR TDSY TD SCH (08:00)
[2016-10-21] MEDS: MAGNESIUM OXIDE 400 MG TAB PO SCH (08:31)
[2016-10-21] MEDS: ALLOPURINOL 300 MG TAB PO SCH (08:31)
[2016-10-21] MEDS: POTASSIUM CITRATE 10 MEQ TAB PO SCH (08:32)
[2016-10-21] MEDS: LISINOPRIL/HCTZ 20/12.5MG TAB PO SCH (08:32)
[2016-10-21] MEDS: INSULIN ASPART 100 UNITS/ML 3 ML PEN SC SCH ×2 (08:41→12:00)
--- NOTE | 2016-10-21 11:42 | Progress Note ---
Internal Med Progress Note Date of Service: October 21, 2016. Provider Documentation: SUBJECTIVE: Patient is doing well. AAOX3. Denies any complaints. No dysuria, urinary frequency, flank pain, fever, chills, nausea, vomiting. No chest pain, SOB, cough. OBJECTIVE: Vital Signs-as noted below Exam: General Appearance:Moderately built and nourished, no apparent distress Head: normocephalic, Atraumatic Respiratory/Chest: Normal breath sounds, CTA Cardiovascular: S1, S2, No murmur Abdomen/GI:Soft, Non tender, Bowel sounds present Extremities/Musculoskelatal:normal inspection, no edema Neurologic/Psych:grossly no focal neurological deficits Lab data as noted below. ASSESSMENT & PLAN: ASSESSMENT & PLAN: EPISODIC CONFUSION/ENCEPHALOPATHY- Resolved Likely secondary to hypoglycemic episode. Per son, blood sugar was 85 which is low for her. Had 2 hyopglycemia episodes while in the hospital. -Blood sugars much better controlled with no hypoglycemia with the new regimen, overall uncontrolled with HBA1C 8.6 with fluctuations /hypoglycemia -Work up- CT head, EEG, CXR, UA: Unremarkable; Orthostats- negative -S/P IVF -PT/OT- recommends rehab DM II WITH HYPOGLYCEMIC EPISODES/FLUCTUATIONS Likely episodic confusion secondary to hypoglycemic episode. Per son, blood sugar was 85 which is low for her. Had 2 hyopglycemia episodes while in the hospital. Hold metformin, glipizide (will dc on discharge) -Discussed with pharmacy- decreased lantus to 38 units q HS from BID which was her home regimen. Discontinue Glipizide on discharge. Will need further adjustments outpatient as HBA1C 8.6 and blood sugar does go up to 300s at home per son. So far, levels are controlled with the new regimen with no hypoglycemia. -ISS, Accuchecks. -Monitor blood sugar levels closely at the rehab and outpatient -Appreciate pharmacy glycemic mx PAROXYSMAL ATRIAL FIBRILLATION -On monitor- noted to have paroxysmal Atrial fibrillation, lasting for few minutes , rate controlled, but overall has been in NSR. -Does have past history of Atrial fibrillation, not on ASA/Coumadin likely due to allergy/risk of fall per son. CHADSVASC- 5 --> At risk of Stroke Explained to patient's son about the high risk of stroke, but as risks outweigh the benefit, would not put her on coumadin. May consider Aspirin---> will defer to PCP outpatient. HYPERTENSION- -Continue lisinopril/hydrochlorothiazide -Monitor HYPERLIPIDEMIA -Continue statin H/O HYPOMAGNESEMIA/HYPOKALEMIA -Continue supplements H/O GOUT: -Continue allopurinol CKD III: cr at baseline Monitor DVT Px: SCDs CODE STATUS Full code. DISPOSITION PT/OT, Social service consulted Needs rehab Placement- Awaiting placement---> Bed available today at [facility]. Okay to discharge Vital Signs: Date Time Temp Pulse Resp B/P Pulse Ox O2 Delivery O2 Flow Rate FiO2 10/21/16 09:41 Room Air 10/21/16 07:17 36.8 62 18 146/82 97 Room Air 10/21/16 00:00 Room Air 10/20/16 23:37 36.6 68 20 148/76 94 Room Air 10/20/16 20:00 Room Air 10/20/16 18:54 36.7 72 22 143/82 97 Room Air 10/20/16 18:07 36.9 72 18 96 10/20/16 17:00 102/59 10/20/16 16:00 Room Air 10/20/16 15:37 36.9 72 18 90/59 96 10/20/16 12:00 Room Air Lab Results: Results Past 24 Hours Test 10/20/16 16:28 10/20/16 20:11 10/21/16 05:55 10/21/16 07:34 Range/Units Bedside Glucose 131 205 94 70-90 mg/dl White Blood Count 11.59 4.8-10.8 K/uL Red Blood Count 4.09 4.2-5.4 M/uL Hemoglobin 11.6 12.0-16.0 g/dL Hematocrit 35.2 37-47 % Mean Corpuscular Volume 86.1 80-100 fL Mean Corpuscular Hemoglobin 28.4 25-34 pg Mean Corpuscular Hemoglobin Concent 33.0 32-36 g/dl Platelet Count 296 130-400 K/uL Mean Platelet Volume 8.8 7.4-10.4 fL Neutrophils (%) (Auto) 71.1 % Lymphocytes (%) (Auto) 20.6 % Monocytes (%) (Auto) 6.0 % Eosinophils (%) (Auto) 1.8 % Basophils (%) (Auto) 0.2 % Neutrophils # (Auto) 8.24 1.4-6.5 K/uL Lymphocytes # (Auto) 2.39 1.2-3.4 K/uL Monocytes # (Auto) 0.70 0.11-0.59 K/uL Eosinophils # (Auto) 0.21 0-0.5 K/uL Basophils # (Auto) 0.02 0-0.2 K/uL RDW Standard Deviation 44.0 36.4-46.3 fL RDW Coefficient of Variation 14.0 11.5-14.5 % Immature Granulocyte % (Auto) 0.3 % Immature Granulocyte # (Auto) 0.03 0.00-0.02 K/uL Sodium Level 140 136-145 mmol/L Potassium Level 4.0 3.5-5.1 mmol/L Chloride Level 103 98-107 mmol/L Carbon Dioxide Level 31 21-32 mmol/L Anion Gap 6.0 3-11 mmol/L Blood Urea Nitrogen 15 7-18 mg/dl Creatinine 0.81 0.60-1.20 mg/dl Est Creatinine Clear Calc Drug Dose 54.9 ml/min Estimated GFR () 78.9 Estimated GFR (Non- 68.1 BUN/Creatinine Ratio 18.8 10-20 Random Glucose 98 70-99 mg/dl Calcium Level 8.6 8.5-10.1 mg/dl Magnesium Level 1.7 1.8-2.4 mg/dl
[2016-10-21] MEDS ORDERED: INSDGI SQ (11:43)
[2016-10-21] MEDS ORDERED: NICO14DI9 TD (11:43)
--- NOTE | 2016-10-21 11:46 | Discharge Instructions ---
Discharge Instructions Date of Service October 21, 2016. Admission Reason for Admission: Ams, Urinary Incontinence Discharge Discharge Diagnosis / Problem: 1. Episodic confusion secondary to hypoglycemia Discharge Goals Goal(s): Decrease discomfort, Improve function, Increase independence Activity Recommendations Activity Limitations: per Instructions/Follow-up section (as tolerated with assistive device, walker with PT/OT) . Instructions / Follow-Up Instructions / Follow-Up MEDICATION CHANGES: 1. Insulin to be decreased to 38 units at bedtime from twice a day due to hypoglycemic episodes 2. Glipizide discontinued as you are on Insulin and it increases risk of hypoglycemia FOLLOW UP: With PCP in 1 week MONITOR: Blood glucose monitoring due to recent changes. Has had fluctuations - hypoglycemia/high blood sugar levels with HBA1C 8.6 outpatient--->Need to monitor levels closely to make adjustments in Insulin dosage accordingly PT/OT recommended QUIT SMOKING Current Hospital Diet Patient's current hospital diet: AHA Diet (Heart Healthy), Diabetes Type 2 Diet Discharge Diet Recommended Diet: AHA Diet (Heart Healthy), Low Sodium Diet (2gm Na), Diabetes Type 2 Diet Pending Studies Studies pending at discharge: no Laboratory Results Hemoglobin A1c Test 10/18/16 05:05 Range/Units Estimated Average Glucose 200 mg/dl Hemoglobin A1c 8.6 H 4.5-5.6 % Medical Emergencies . Who to Call and When: Medical Emergencies: If at any time you feel your situation is an emergency, please call 911 immediately. . Non-Emergent Contact Non-Emergency issues call your: Primary Care Provider . . "Provider Documentation" section prepared by Ely Hooks. . VTE Core Measure Inpt VTE Proph given/why not?: Geraldine Rodriguez, RICARDA's
--- NOTE | 2016-10-21 11:49 | Discharge Summary ---
Discharge Summary Date of Service October 21, 2016. Discharge Summary Admission Date: October 18, 2016 at 04:01 Discharge Date: October 21, 2016 Discharge Disposition: Home Principal Diagnosis: 1. Episodic confusion /Encephalopathy secondary to hypoglycemia 2. DM-II uncontrolled with hypoglycemic episodes 3. Hypokalemia/Hypomagnesemia Secondary Diagnoses/Problems: 1. HTN 2. HLP 3. Gout 4. CKD-III 5. Possible mild cognitive impairment 6. Paroxysmal Atrial fibrillation Procedures: Tele monitoring CXR CT head Blood glucose monitoring UA/Urine cx- no sig growth PT/OT Consultations: None Pending Studies/Follow-Up: Instructions / Follow-Up Instructions / Follow-Up MEDICATION CHANGES: 1. Insulin to be decreased to 38 units at bedtime from twice a day due to hypoglycemic episodes 2. Glipizide discontinued as you are on Insulin and it increases risk of hypoglycemia FOLLOW UP: With PCP in 1 week MONITOR: Blood glucose monitoring due to recent changes. Has had fluctuations - hypoglycemia/high blood sugar levels with HBA1C 8.6 outpatient--->Need to monitor levels closely to make adjustments in Insulin dosage accordingly PT/OT recommended Medication Reconciliation New Medications: Nicotine (Nicotine) 14 Mg/24 Hr Dis 1 PATCH TD QAM for 10 Days Changed Medications: Insulin Glargine (Lantus) 100 Unit/Ml Inj 38 UNITS SQ HS for 30 Days, VIAL (Changed from: AMPM) Continued Medications: Allopurinol (Zyloprim) 300 Mg Tab 300 MG PO DAILY, TAB Alprazolam (Xanax) 0.25 Mg Tab 0.25 MG PO DAILY PRN for 30 MINUTES BEFORE FLYING, TAB Atorvastatin (Lipitor) 40 Mg Tab 40 MG PO HS, TAB Lisinopril/Hctz (Zestoretic 20MG/12.5MG) Tab 1 TAB PO BID, TAB Magnesium Oxide (Mag-Ox) 400 Mg Tab 200 MG PO DAILY, #30 TAB Metformin Hcl (Glucophage) 1,000 Mg Tab 1000 MG PO BIDM, TAB Potassium Citrate (Alkalinizer (Potassium Citrate ER) 1,080 Mg Tab 3240 MG PO TID, TAB TAKE 3 TABLETS THREE TIMES DAILY. Discontinued Medications: Ciprofloxacin (Ciprofloxacin HCl) 500 Mg Tab 500 MG PO BID for 6 Days, #12 TAB Glipizide (Glucotrol) 10 Mg Tab 10 MG PO BID, TAB TAKE THIS MED TWICE DAILY, 30 MINUTES BEFORE A MEAL. Admission Information HPI (per Admitting provider): HISTORY OF PRESENT ILLNESS: This is an 80-year-old female, with a past medical history significant for type 2 diabetes, history of UTIs, history of gout, chronic kidney disease stage 3, hyperlipidemia who was recently in the hospital last month with encephalopathy secondary to UTI and was discharged home. She lives alone, son lives close by. She was brought in by son because of confusion. As per son, apparently the patient was doing okay earlier in the day, but when he came back later today, the door of the house was open, patient was lying on the couch, shaking, covered in her own urine, had some slurred speech and when he checked her sugar level it was 85. The patient was trying to get up, tried to walk, she fell down and hit her right elbow and right knee. Currently, is complaining of some pain in the right knee. She denies any headaches. No blurred vision, no dizziness, no chest pain, no shortness of breath, no cough, no fever, no chills, no nausea, no vomiting and no abdominal pain. Normal bowel and bladder movements. As per son blood sugars was 85 at that time. He says that her sugars are generally in the 150s range; he thinks that 85 was somewhat low to her. Currently she is resting comfortably, alert, oriented x3 and hemodynamically stable and mental status at baseline. Hospital Course ASSESSMENT & PLAN: EPISODIC CONFUSION/ENCEPHALOPATHY- Resolved Likely secondary to hypoglycemic episode. Per son, blood sugar was 85 which is low for her. Had 2 hyopglycemia episodes while in the hospital. -Blood sugars much better controlled with no hypoglycemia with the new regimen, overall uncontrolled with HBA1C 8.6 with fluctuations /hypoglycemia -Work up- CT head, EEG, CXR, UA: Unremarkable; Orthostats- negative -S/P IVF -PT/OT- recommends rehab DM II WITH HYPOGLYCEMIC EPISODES/FLUCTUATIONS Likely episodic confusion secondary to hypoglycemic episode. Per son, blood sugar was 85 which is low for her. Had 2 hyopglycemia episodes while in the hospital. Hold metformin, glipizide (will dc on discharge) -Discussed with pharmacy- decreased lantus to 38 units q HS from BID which was her home regimen. Discontinue Glipizide on discharge. Will need further adjustments outpatient as HBA1C 8.6 and blood sugar does go up to 300s at home per son. So far, levels are controlled with the new regimen with no hypoglycemia. -ISS, Accuchecks. -Monitor blood sugar levels closely at the rehab and outpatient -Appreciate pharmacy glycemic mx PAROXYSMAL ATRIAL FIBRILLATION -On monitor- noted to have paroxysmal Atrial fibrillation, lasting for few minutes , rate controlled, but overall has been in NSR. -Does have past history of Atrial fibrillation, not on ASA/Coumadin likely due to allergy/risk of fall per son. CHADSVASC- 5 --> At risk of Stroke Explained to patient's son about the high risk of stroke, but as risks outweigh the benefit, would not put her on coumadin. May consider Aspirin---> will defer to PCP outpatient. HYPERTENSION- -Continue lisinopril/hydrochlorothiazide -Monitor HYPERLIPIDEMIA -Continue statin H/O HYPOMAGNESEMIA/HYPOKALEMIA -Continue supplements H/O GOUT: -Continue allopurinol CKD III: Creatinine at baseline Monitor POSSIBLE MILD COGNITIVE IMPAIRMENT Need to monitor outpatient DVT Px: SCDs CODE STATUS Full code. DISPOSITION PT/OT, Social service consulted Needs rehab Placement- Awaiting placement---> Bed available today at [facility]. Okay to discharge Total time spent on discharge = 40 MINUTES This includes examination of the patient, discharge planning, medication reconciliation, and communication with other providers. Discharge Instructions Discharge Goals Goal(s): Decrease discomfort, Improve function, Increase independence Activity Recommendations Activity Limitations: per Instructions/Follow-up section (as tolerated with assistive device, walker with PT/OT) . Instructions / Follow-Up Instructions / Follow-Up MEDICATION CHANGES: 1. Insulin to be decreased to 38 units at bedtime from twice a day due to hypoglycemic episodes 2. Glipizide discontinued as you are on Insulin and it increases risk of hypoglycemia FOLLOW UP: With PCP in 1 week MONITOR: Blood glucose monitoring due to recent changes. Has had fluctuations - hypoglycemia/high blood sugar levels with HBA1C 8.6 outpatient--->Need to monitor levels closely to make adjustments in Insulin dosage accordingly PT/OT recommended Current Hospital Diet Patient's current hospital diet: AHA Diet (Heart Healthy), Diabetes Type 2 Diet Discharge Diet Recommended Diet: AHA Diet (Heart Healthy), Low Sodium Diet (2gm Na), Diabetes Type 2 Diet Pending Studies Studies pending at discharge: no Laboratory Results Hemoglobin A1c Test 10/18/16 05:05 Range/Units Estimated Average Glucose 200 mg/dl Hemoglobin A1c 8.6 H 4.5-5.6 % Medical Emergencies . Who to Call and When: Medical Emergencies: If at any time you feel your situation is an emergency, please call 911 immediately. . Non-Emergent Contact Non-Emergency issues call your: Primary Care Provider . . "Provider Documentation" section prepared by Ely Hooks. . VTE Core Measure Inpt VTE Proph given/why not?: Geraldine Rodriguez, SCD's
[2016-10-21 12:16] VITALS: BP 146/82; PULSE 62; TEMP 36.8; O2SAT 97
== END 2016-10-21 14:30 | DRG 637 ==
LOC: ENRESERVDT → ENRESERVTM → C.EDB 01:27 → C.2E 04:01 → C.4E 10-20 18:39
PROVIDERS: ADMIT Internal Medicine; ATTEND Internal Medicine
DX: E11.649 Type 2 diabetes mellitus with hypoglycemia without coma (principal); G93.40 Encephalopathy, unspecified; E11.22 Type 2 diabetes mellitus with diabetic chronic kidney disease; N18.3 Chronic kidney disease, stage 3 (moderate); I12.9 Hypertensive chronic kidney disease with stage 1 through stage 4 chronic kidney disease, or unspecified chronic kidney disease; E78.5 Hyperlipidemia, unspecified; M10.9 Gout, unspecified; E87.6 Hypokalemia; E83.42 Hypomagnesemia; I48.0 Paroxysmal atrial fibrillation; R25.1 Tremor, unspecified; G31.84 Mild cognitive impairment of uncertain or unknown etiology; Z88.6 Allergy status to analgesic agent; Z88.0 Allergy status to penicillin; Z79.4 Long term (current) use of insulin; Z79.899 Other long term (current) drug therapy; Z87.440 Personal history of urinary (tract) infections; Z90.49 Acquired absence of other specified parts of digestive tract; Z90.710 Acquired absence of both cervix and uterus; Z82.49 Family history of ischemic heart disease and other diseases of the circulatory system; Z83.3 Family history of diabetes mellitus

== ENCOUNTER 2020-02-03 09:22 | Inpatient (IN) ==
[2020-02-03] MEDS ORDERED: fentaNYL citrate 100 MCG/2 ML VIAL IV PRN (09:30)
[2020-02-03] MEDS ORDERED: SODIUM CHLORIDE 0.9% 500 ML IV SCH (09:30)
[2020-02-03] MEDS ORDERED: ONDANSETRON INJ 2 MG/ML 2 ML VIAL IV STA (09:30)
[2020-02-03] MEDS ORDERED: OPTIRAY 320 125ml IV ONE (09:36)
[2020-02-03 09:53] LABS: Basophils # (auto) 0.03 K/uL (0-0.2); Basophils % (auto) 0.2 %; Eosinophils # (auto) 0.15 K/uL (0-0.5); Eosinophils % (auto) 0.9 %; Hematocrit (blood only) 38.9 % (37-47); Hemoglobin 12.6 g/dL (12.0-16.0); Immature Granulocytes # (auto) 0.06 K/uL (0.00-0.02); Immature Granulocytes % (auto) 0.4 %; Lymphocytes % (auto) 1.8 %; Mean Corpuscular Hemoglobin 28.4 pg (25-34); Mean Corpuscular Hgb Conc 32.4 g/dL (32-36); Mean Corpuscular Volume 87.6 fL (80-100); Monocytes # (auto) 0.48 K/uL (0.11-0.59); Neutrophils # (auto) 15.23 K/uL (1.4-6.5); Neutrophils % (auto) 93.7 %; Platelet Count 301 K/uL (130-400); RDW Coefficient of Variation 15.7 % (11.5-14.5); RDW Standard Deviation 50.4 fL (36.4-46.3); Red Blood Count 4.44 M/uL (4.2-5.4); White Blood Count 16.25 K/uL (4.8-10.8)
[2020-02-03 09:58] LABS: iSTAT Creatinine 1.1 mg/dl (0.6-1.3); iSTAT Hemoglobin 12.9 g/dl (12.0-16.0); iSTAT Ionized Calcium 1.01 mmol/l (1.12-1.32); iSTAT Potassium 4.1 mmol/L (3.3-5.0)
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
[2020-02-03 10:04] LABS: Partial Thromboplastin Time 28.9 Seconds (21.0-31.0); Prothrombin Time 10.8 Seconds (9.0-12.0)
--- NOTE | 2020-02-03 10:09 | XRay Report ---
XR chest 1V portable CLINICAL HISTORY: Atypical chest pain COMPARISON STUDY: 2512 FINDINGS: The heart is borderline enlarged. There is no failure. There is no lobar consolidation. The re are linear areas of left basilar subsegmental atelectasis. Again evident is a left humeral head an d neck fracture.[No pleural effusions are visualized IMPRESSION: 1. Subsegmental atelectatic changes at the left lung base. 2. No evidence of failure. No evidence of lobar consolidation ACT 112: Negative or not required by law. Electronically signed by: Joshua Sanderson M.D. 02/03/2020 10:08 AM
[2020-02-03 10:10] LABS: Alanine Aminotransferase 40 U/L (12-78); Albumin Level 2.9 gm/dl (3.4-5.0); Aspartate Aminotransferase 46 U/L (15-37); BUN Creatinine Ratio 27.6 (10-20); Blood Urea Nitrogen 28 mg/dl (7-18); Calcium 9.2 mg/dl (8.5-10.1); Carbon Dioxide 28 mmol/L (21-32); Chloride 100 mmol/L (98-107); Creatinine Clr Calc Pharmacy 39.2 ml/min; Est GFR (African American) 58.8; Est GFR (Non-African American) 50.7; Glucose 135 mg/dl (70-99); Lipase 28 U/L (73-393); Magnesium 2.1 mg/dl (1.8-2.4); Sodium 136 mmol/L (136-145)
[2020-02-03 10:21] LABS: Albumin Globulin Ratio 0.7 (0.9-2); Alkaline Phosphatase 151 U/L (45-117); Bilirubin,Total 0.9 mg/dl (0.2-1); Creatine Kinase 59 U/L (26-192); Creatine Kinase MB < 1.0 ng/ml (0.5-3.6); Globulin 4.3 gm/dl (2.5-4.0); Total Protein 7.2 gm/dl (6.4-8.2); Troponin I < 0.015 ng/ml (0-0.045)
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
[2020-02-03] MEDS ORDERED: SODIUM CHLORIDE 0.9% 1000ML 1,000 ML IV ONE (10:36)
[2020-02-03] MEDS ORDERED: CEFEPIME 2,000 MG/20 ML VIAL IV STA (10:36)
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
[2020-02-03] MEDS ORDERED: METOPROLOL TARTRATE 1 MG/ML VIAL IV STA (13:22)
[2020-02-03] MEDS ORDERED: Heparin IV Low Dose *NO* Bolus IV ONE (13:23)
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
[2020-02-03] MEDS: HEPARIN SODIUM/DEXTROSE 25,000 UNITS/500 ML BAG IV SCH (13:58)
[2020-02-03] MEDS ORDERED: GLUCOSE 10 TABS/TUBE PO PRN (15:05)
[2020-02-03] MEDS ORDERED: GLUCAGON FOR INJ 1 MG VIAL SQ PRN (15:05)
[2020-02-03] MEDS ORDERED: CARBOHYDRATES FOR HYPOGLYCEMIA PO PRN (15:05)
[2020-02-03] MEDS ORDERED: GLUCOSE 40% GEL 15 GM TUBE PO PRN (15:05)
[2020-02-03] MEDS ORDERED: DEXTROSE 50% 50 ML SYRINGE IV PRN (15:05)
[2020-02-03] MEDS: traMADol HCL 50 MG TABLET PO PRN ×2 (15:29→20:38)
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
[2020-02-03] MEDS: INSULIN ASPART 100 UNITS/ML 3 ML PEN SC SCH ×2 (16:45→20:35)
[2020-02-03] MEDS: INSULIN GLARGINE SOLOSTAR 100 UNITS/ML 3 ML PEN SQ SCH (16:45)
[2020-02-03] MEDS: ACETAMINOPHEN 325 MG TAB PO SCH ×2 (16:46→23:50)
[2020-02-03] MEDS: cefTRIAXone SODIUM 1,000 MG in DEXTROSE 5% 50 ML IV SCH (17:27)
[2020-02-03] MEDS ORDERED: XOPENEX/ATROVENT 1.25mg/0.5MG NEB COMBO NEB SCH (19:00)
[2020-02-03] MEDS: ACETYLCYSTEINE 10% INHAL SOLN 4 ML **DISPENSED BY RESP. INH SCH (19:01)
[2020-02-03] MEDS: LEVALBUTEROL 1.25MG/0.5ML NEB INH SCH (19:02)
[2020-02-03] MEDS: IPRATROPIUM BROMIDE NEB SOLN 0.02% 2.5 ML VIAL INH SCH (19:02)
[2020-02-03 20:19] LABS: Partial Thromboplastin Ratio 1.3; Partial Thromboplastin Time 35.3 Seconds (21.0-31.0)
[2020-02-03] MEDS: METOPROLOL TARTRATE 25 MG TAB PO SCH (20:33)
[2020-02-03] MEDS: guaiFENesin 600 MG TABCR PO SCH (20:33)
[2020-02-03] MEDS: POTASSIUM CITRATE 10 MEQ TAB PO SCH (20:33)
[2020-02-03] MEDS: ATORVASTATIN 40 MG TAB PO SCH (20:34)
[2020-02-03] MEDS ORDERED: HEPARIN SODIUM IV ONE (21:00)
[2020-02-04] MEDS: IPRATROPIUM BROMIDE NEB SOLN 0.02% 2.5 ML VIAL INH SCH ×4 (01:00→19:27)
[2020-02-04] MEDS: LEVALBUTEROL 1.25MG/0.5ML NEB INH SCH ×4 (01:00→19:27)
[2020-02-04 03:32] LABS: Partial Thromboplastin Ratio 1.8
[2020-02-04 03:34] LABS: Partial Thromboplastin Time 51.2 Seconds (21.0-31.0)
[2020-02-04] MEDS: ACETAMINOPHEN 325 MG TAB PO SCH ×4 (06:07→23:30)
[2020-02-04 06:11] LABS: Hematocrit (blood only) 36.8 % (37-47); Hemoglobin 11.8 g/dL (12.0-16.0); Mean Corpuscular Hemoglobin 28.4 pg (25-34); Mean Corpuscular Hgb Conc 32.1 g/dL (32-36); Mean Corpuscular Volume 88.5 fL (80-100); Mean Platelet Volume 9.4 fL (7.4-10.4); Platelet Count 272 K/uL (130-400); RDW Coefficient of Variation 15.8 % (11.5-14.5); RDW Standard Deviation 50.5 fL (36.4-46.3); Red Blood Count 4.16 M/uL (4.2-5.4); White Blood Count 12.45 K/uL (4.8-10.8)
[2020-02-04 06:41] LABS: BUN Creatinine Ratio 32.6 (10-20); Calcium 8.1 mg/dl (8.5-10.1); Creatinine Clr Calc Pharmacy 40.4 ml/min; Est GFR (African American) 59.5; Est GFR (Non-African American) 51.3; Magnesium 2.3 mg/dl (1.8-2.4); Potassium 4.3 mmol/L (3.5-5.1)
[2020-02-04] MEDS: ACETYLCYSTEINE 10% INHAL SOLN 4 ML **DISPENSED BY RESP. INH SCH ×2 (07:31→19:27)
[2020-02-04] MEDS ORDERED: PERFLUTREN LIPID MICROSPHERE (DEFINITY) IV ONE (08:10)
[2020-02-04] MEDS: INSULIN ASPART 100 UNITS/ML 3 ML PEN SC SCH ×5 (08:12→22:33)
[2020-02-04] MEDS: ASPIRIN 81 MG ECTAB PO SCH (08:13)
[2020-02-04] MEDS: INSULIN GLARGINE SOLOSTAR 100 UNITS/ML 3 ML PEN SQ SCH ×2 (08:13→22:32)
[2020-02-04] MEDS: allopurinoL 300 MG TAB PO SCH (08:13)
[2020-02-04] MEDS: CYANOCOBALAMIN 500 MCG TABLET (VITAMIN B-12) PO SCH (08:14)
[2020-02-04] MEDS: MULTIVITAMIN TAB PO SCH (08:14)
[2020-02-04] MEDS: lisinopril 10 MG TAB PO SCH (08:14)
[2020-02-04] MEDS: POTASSIUM CITRATE 10 MEQ TAB PO SCH ×2 (08:14→20:59)
[2020-02-04] MEDS: METOPROLOL TARTRATE 25 MG TAB PO SCH ×2 (08:14→20:53)
[2020-02-04] MEDS: MAGNESIUM OXIDE 400 MG TAB PO SCH (08:14)
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
[2020-02-04] MEDS: guaiFENesin 600 MG TABCR PO SCH ×2 (08:15→21:01)
[2020-02-04] MEDS: LIDOCAINE 5% 1 PATCH TD SCH (08:16)
[2020-02-04] MEDS: NICOTINE 14 MG/24 HR PATCH TD SCH (08:16)
[2020-02-04] MEDS ORDERED: hydroCHLOROthiazide 25 MG TAB PO SCH (09:00)
[2020-02-04] MEDS: traMADol HCL 50 MG TABLET PO PRN (10:37)
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
[2020-02-04] MEDS: DOCUSATE SODIUM/SENNA 50/8.6MG TAB PO SCH (10:38)
[2020-02-04] MEDS: POLYETHYLENE (MIRALAX) 17 GM PACK PO SCH (10:38)
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
[2020-02-04 11:22] LABS: Appearance Urine Clear (Clear); Bacteria Urine Automated Negative (Negative); Bilirubin Urine Negative (Negative); Blood Urine Negative (Negative); Color Urine Dark Yellow; Epithelial Cell Urine Auto >30 /lpf (0-5); Glucose Urine UA Negative (Negative); Ketones Urine Trace (Negative); Leukocyte Esterase Urine Negative (Negative); Nitrite Urine Positive (Negative); Protein Urine Trace (Negative); Specific Gravity Urine 1.041 (1.000-1.030); Urobilinogen Urine Negative (Negative)
[2020-02-04] MEDS: AMIODARONE 200 MG TAB PO SCH ×2 (11:47→17:12)
[2020-02-04] MEDS ORDERED: SODIUM CHLORIDE 0.9% 1000ML 500 ML IV ONE (16:41)
[2020-02-04] MEDS: HEPARIN SODIUM/DEXTROSE 25,000 UNITS/500 ML BAG IV SCH (17:10)
[2020-02-04] MEDS: cefTRIAXone SODIUM 1,000 MG in DEXTROSE 5% 50 ML IV SCH (17:11)
[2020-02-04] MEDS: ATORVASTATIN 40 MG TAB PO SCH (20:58)
[2020-02-04] MEDS ORDERED: SODIUM CHLORIDE 0.9% 500 ML IV ONE (21:31)
[2020-02-04] MEDS ORDERED: INSULIN GLARGINE SOLOSTAR 100 UNITS/ML 3 ML PEN SC STA (21:34)
[2020-02-04] MEDS ORDERED: DIGOXIN 250 MCG in SYRINGE 9 ML IV ONE (22:00)
[2020-02-04 22:14] LABS: BUN Creatinine Ratio 34.1 (10-20); Calcium 8.1 mg/dl (8.5-10.1); Creatinine Clr Calc Pharmacy 36.4 ml/min; Est GFR (African American) 52.4; Est GFR (Non-African American) 45.2; Magnesium 2.2 mg/dl (1.8-2.4)
[2020-02-04 22:43] LABS: Albumin Level 2.2 gm/dl (3.4-5.0)
[2020-02-04] MEDS ORDERED: NSS + 20MEQ KCL 20 MEQ/1,000 ML BAG IV ONE (23:00)
[2020-02-04] MEDS ORDERED: DIGOXIN 500 MCG/2 ML AMP IV ONE (23:58)
[2020-02-05] MEDS ORDERED: dilTIAZem HCl 5 MG/ML 5 ML VIAL IV ONE
[2020-02-05] MEDS: DIGOXIN 250 MCG in SYRINGE 9 ML IV ONE ×2 (00:08→00:16)
[2020-02-05] MEDS: LEVALBUTEROL 1.25MG/0.5ML NEB INH SCH ×4 (00:53→19:14)
[2020-02-05] MEDS: IPRATROPIUM BROMIDE NEB SOLN 0.02% 2.5 ML VIAL INH SCH ×4 (00:53→19:14)
[2020-02-05 04:07] LABS: Basophils # (auto) 0.01 K/uL (0-0.2); Basophils % (auto) 0.1 %; Eosinophils % (auto) 5.4 %; Hematocrit (blood only) 29.4 % (37-47); Hemoglobin 9.7 g/dL (12.0-16.0); Immature Granulocytes # (auto) 0.04 K/uL (0.00-0.02); Immature Granulocytes % (auto) 0.4 %; Lymphocytes # (auto) 0.68 K/uL (1.2-3.4); Lymphocytes % (auto) 7.3 %; Mean Corpuscular Hemoglobin 28.9 pg (25-34); Mean Corpuscular Volume 87.5 fL (80-100); Mean Platelet Volume 8.5 fL (7.4-10.4); Monocytes # (auto) 0.75 K/uL (0.11-0.59); Neutrophils # (auto) 7.36 K/uL (1.4-6.5); Neutrophils % (auto) 78.8 %; Platelet Count 286 K/uL (130-400); RDW Coefficient of Variation 15.5 % (11.5-14.5); RDW Standard Deviation 49.7 fL (36.4-46.3); Red Blood Count 3.36 M/uL (4.2-5.4); White Blood Count 9.34 K/uL (4.8-10.8)
[2020-02-05 04:21] LABS: Partial Thromboplastin Ratio 1.2; Partial Thromboplastin Time 32.8 Seconds (21.0-31.0)
[2020-02-05 04:22] LABS: BUN Creatinine Ratio 32.8 (10-20); Calcium 7.8 mg/dl (8.5-10.1); Est GFR (African American) 62.5; Est GFR (Non-African American) 53.9
[2020-02-05] MEDS ORDERED: HEPARIN IV BOLUS 4,000 UNITS in SYRINGE 0 ML IV ONE (05:00)
[2020-02-05] MEDS: ACETAMINOPHEN 325 MG TAB PO SCH ×4 (05:14→23:59)
[2020-02-05] MEDS: AMIODARONE 200 MG TAB PO SCH ×3 (05:29→17:17)
[2020-02-05] MEDS ORDERED: DIGOXIN 500 MCG/2 ML AMP IV ONE (06:00)
[2020-02-05] MEDS ORDERED: DIGOXIN 250 MCG in SYRINGE 9 ML IV ONE (06:00)
--- NOTE | 2020-02-05 06:10 | Electrocardiogram Report ---
Test Reason : Blood Pressure : / mmHG Vent. 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
[2020-02-05] MEDS: traMADol HCL 50 MG TABLET PO PRN ×2 (06:22→14:26)
--- NOTE | 2020-02-05 06:53 | Electrocardiogram Report ---
Test Reason : Blood Pressure : / mmHG Vent. Rate : 111 BPM Atrial Rate : 000 BPM P-R Int : 000 ms QRS Dur : 080 ms QT Int : 348 ms P-R-T Axes : 000 008 092 degrees QTc Int : 473 ms Atrial fibrillation with rapid ventricular response Possible Inferior infarct , age undetermined Possible Anterior infarct (cited on or before 22-JUL-2001) Abnormal ECG When compared with ECG of 03-FEB-2020 09:29, No significant change was found Confirmed by Karan Tafoya ([id number]) on 02/05/2020 6:53:31 AM Referred By: [facility] Confirmed By:Karan Tafoya
[2020-02-05] MEDS: ACETYLCYSTEINE 10% INHAL SOLN 4 ML **DISPENSED BY RESP. INH SCH ×2 (07:02→19:14)
[2020-02-05] MEDS: INSULIN ASPART 100 UNITS/ML 3 ML PEN SC SCH ×4 (08:18→21:04)
[2020-02-05] MEDS: INSULIN GLARGINE SOLOSTAR 100 UNITS/ML 3 ML PEN SQ SCH ×2 (08:19→21:02)
[2020-02-05] MEDS: allopurinoL 300 MG TAB PO SCH (08:20)
[2020-02-05] MEDS: MULTIVITAMIN TAB PO SCH (08:20)
[2020-02-05] MEDS: lisinopril 10 MG TAB PO SCH (08:21)
[2020-02-05] MEDS: MAGNESIUM OXIDE 400 MG TAB PO SCH (08:21)
[2020-02-05] MEDS: METOPROLOL TARTRATE 25 MG TAB PO SCH ×2 (08:21→21:01)
[2020-02-05] MEDS: ASPIRIN 81 MG ECTAB PO SCH (08:22)
[2020-02-05] MEDS: guaiFENesin 600 MG TABCR PO SCH ×2 (08:22→21:01)
[2020-02-05] MEDS: POTASSIUM CITRATE 10 MEQ TAB PO SCH ×2 (08:22→21:01)
[2020-02-05] MEDS: LIDOCAINE 5% 1 PATCH TD SCH (08:22)
[2020-02-05] MEDS: NICOTINE 14 MG/24 HR PATCH TD SCH (08:23)
--- NOTE | 2020-02-05 10:53 | Cardiology Progress Note ---
Date of Service February 05, 2020 Assessment & Plan (1) Multiple fractures of ribs: (2) Pelvic fracture: (3) Fracture of proximal end of left humerus: (4) Atrial fibrillation with RVR: The patient had some high heart rates last night and unfortunately was given a loading dose of digoxin. Digoxin is contraindicated with amiodarone, especially in the elderly where it can rapidly cause toxicity. Digoxin has been discontinued. She remains on amiodarone 200 mg 3 times daily. Today I started her on warfarin. INR daily. Admission and Anticipated Discharge Date Admission Date: February 03, 2020 Subjective No new cardiac complaints today. The patient is a little down due to her current circumstances. Review of Systems Review of Systems: All systems reviewed & are unremarkable except as noted in HPI & below Nothing additional to add. Physical Exam Physical Exam: General: no acute distress and stated age Head: normocephalic, no masses, lesions, tenderness or abnormalities Eyes: conjunctiva are pink and non-injected, sclera clear Neck: supple, no adenopathy, no bruits, normal jugular venous pulse, no hepatojugular reflux Chest: normal shape and normal respiratory effort Lungs: clear to auscultation and percussion Cardiac Exam: - irregular rate & rhythm, no murmurs gallops or rubs - normal S1, normal S2 Pulses: 2(+) throughout Abdomen: abdomen soft, non-tender, no abnormal masses and no hepatosplenomegaly Musculoskeletal: no gait disturbance, no joint inflammation, no deforming arthritis Extremities: no edema and no cyanosis Neuro: grossly normal exam Results & Data ([facility]) Vital Signs (Past 12 Hours) Vital Signs Temp Pulse Pulse Resp BP Pulse Ox 02/05/20 07:24 36.6 C 108 H 20 135/70 93 02/05/20 07:02 116 H 18 95 02/05/20 06:04 110 H 02/05/20 05:21 106 H 101/60 02/05/20 02:55 36.7 C 126 H 16 100/59 L 95 02/05/20 00:53 107 H 16 97 02/05/20 00:17 94 H 02/05/20 00:16 90 02/05/20 00:02 132 H 110/78 02/04/20 23:34 36.6 C 130 H 20 122/76 99 Laboratory Results Laboratory Results - last 24 hr 02/04/20 02/04/20 02/04/20 10:40 11:27 16:31 WBC RBC Hgb Hct MCV MCH MCHC RDW Std Deviation RDW Coeff of Kacey Plt Count MPV Immature Gran % (Auto) Neut % (Auto) Lymph % (Auto) [place] % (Auto) Eos % (Auto) Baso % (Auto) Neut # (Auto) Lymph # (Auto) [place] # (Auto) Eos # (Auto) Baso # (Auto) Immature Gran # (Auto) APTT PTT Ratio Sodium Potassium Chloride Carbon Dioxide Anion Gap BUN Creatinine Est Cr Clr Drug Dosing Est GFR ( Amer) Est GFR (Non-Af Amer) BUN/Creatinine Ratio Glucose POC Glucose 198 H 193 H Lactate Calcium Magnesium Albumin Urine Color Dark Yellow Urine Appearance Clear Urine pH 5.0 Ur Specific [place] 1.041 H Urine Protein Trace H Urine Glucose (UA) Negative Urine Ketones Trace H Urine Blood Negative Urine Nitrite Positive A Urine Bilirubin Negative Urine Urobilinogen Negative Ur Leukocyte Esterase Negative Urine WBC (Auto) 1-5 Urine RBC (Auto) 5-10 H U Hyaline Cast (Auto) 1-5 U Epithel Cells (Auto) >30 H Urine Bacteria (Auto) Negative 02/04/20 02/04/20 02/04/20 20:42 20:43 21:01 WBC RBC Hgb Hct MCV MCH MCHC RDW Std Deviation RDW Coeff of Kacey Plt Count MPV Immature Gran % (Auto) Neut % (Auto) Lymph % (Auto) [place] % (Auto) Eos % (Auto) Baso % (Auto) Neut # (Auto) Lymph # (Auto) [place] # (Auto) Eos # (Auto) Baso # (Auto) Immature Gran # (Auto) APTT PTT Ratio Sodium Potassium Chloride Carbon Dioxide Anion Gap BUN Creatinine Est Cr Clr Drug Dosing Est GFR ( Amer) Est GFR (Non-Af Amer) BUN/Creatinine Ratio Glucose 270 H POC Glucose 355 H* 288 H Lactate Calcium Magnesium Albumin Urine Color Urine Appearance Urine pH Ur Specific [place] Urine Protein Urine Glucose (UA) Urine Ketones Urine Blood Urine Nitrite Urine Bilirubin Urine Urobilinogen Ur Leukocyte Esterase Urine WBC (Auto) Urine RBC (Auto) U Hyaline Cast (Auto) U Epithel Cells (Auto) Urine Bacteria (Auto) 02/04/20 02/04/20 02/05/20 21:50 21:50 03:53 WBC RBC Hgb Hct MCV MCH MCHC RDW Std Deviation RDW Coeff of Kacey Plt Count MPV Immature Gran % (Auto) Neut % (Auto) Lymph % (Auto) [place] % (Auto) Eos % (Auto) Baso % (Auto) Neut # (Auto) Lymph # (Auto) [place] # (Auto) Eos # (Auto) Baso # (Auto) Immature Gran # (Auto) APTT 32.8 H PTT Ratio 1.2 Sodium 134 L Potassium 4.0 Chloride 101 Carbon Dioxide 26 Anion Gap 8.0 BUN 38 H Creatinine 1.11 Est Cr Clr Drug Dosing 36.4 Est GFR ( Amer) 52.4 Est GFR (Non-Af Amer) 45.2 BUN/Creatinine Ratio 34.1 H Glucose 283 H POC Glucose Lactate 1.3 Calcium 8.1 L Magnesium 2.2 Albumin 2.2 L Urine Color Urine Appearance Urine pH Ur Specific [place] Urine Protein Urine Glucose (UA) Urine Ketones Urine Blood Urine Nitrite Urine Bilirubin Urine Urobilinogen Ur Leukocyte Esterase Urine WBC (Auto) Urine RBC (Auto) U Hyaline Cast (Auto) U Epithel Cells (Auto) Urine Bacteria (Auto) 02/05/20 02/05/20 02/05/20 03:53 03:53 07:09 WBC 9.34 RBC 3.36 L Hgb 9.7 L Hct 29.4 L MCV 87.5 MCH 28.9 MCHC 33.0 RDW Std Deviation 49.7 H RDW Coeff of Kacey 15.5 H Plt Count 286 MPV 8.5 Immature Gran % (Auto) 0.4 Neut % (Auto) 78.8 Lymph % (Auto) 7.3 [place] % (Auto) 8.0 Eos % (Auto) 5.4 Baso % (Auto) 0.1 Neut # (Auto) 7.36 H Lymph # (Auto) 0.68 L [place] # (Auto) 0.75 H Eos # (Auto) 0.50 Baso # (Auto) 0.01 Immature Gran # (Auto) 0.04 H APTT PTT Ratio Sodium 138 Potassium 4.0 Chloride 105 Carbon Dioxide 27 Anion Gap 6.0 BUN 32 H Creatinine 0.96 Est Cr Clr Drug Dosing 42.0 Est GFR ( Amer) 62.5 Est GFR (Non-Af Amer) 53.9 BUN/Creatinine Ratio 32.8 H Glucose 203 H POC Glucose 180 H Lactate Calcium 7.8 L Magnesium 2.0 Albumin Urine Color Urine Appearance Urine pH Ur Specific [place] Urine Protein Urine Glucose (UA) Urine Ketones Urine Blood Urine Nitrite Urine Bilirubin Urine Urobilinogen Ur Leukocyte Esterase Urine WBC (Auto) Urine RBC (Auto) U Hyaline Cast (Auto) U Epithel Cells (Auto) Urine Bacteria (Auto) Medications Administered Current Inpatient Medications Acetaminophen (Acetaminophen 325 Mg Tab) 650 mg PO Q6H [facility] Stop: 03/04/20 17:59 Last Admin: 02/05/20 05:14 Dose: 650 mg Documented by: Acetylcysteine (Acetylcysteine 10% Inhal Soln 4 Ml Dispensed By Resp.) 3 ml INH Q12R [facility] Stop: 03/04/20 18:59 Last Admin: 02/05/20 07:02 Dose: 3 ml Documented by: Allopurinol (Allopurinol 300 Mg Tab) 300 mg PO QAM [facility] Stop: 03/05/20 08:59 Last Admin: 02/05/20 08:20 Dose: 300 mg Documented by: Amiodarone HCl (Amiodarone 200 Mg Tab) 200 mg PO TIDM [facility] Stop: 03/06/20 05:24 Last Admin: 02/05/20 05:29 Dose: 200 mg Documented by: Aspirin (Aspirin 81 Mg Ectab) [facility] Stop: 03/05/20 08:59 Last Admin: 02/05/20 08:22 Dose: 81 mg Documented by: Atorvastatin Calcium (Atorvastatin 40 Mg Tab) 40 mg PO HS [facility] Stop: 03/04/20 20:59 Last Admin: 02/04/20 20:58 Dose: 40 mg Documented by: Cyanocobalamin (Cyanocobalamin 500 Mcg Tablet (Vitamin B-12)) 1,000 mcg PO MoWeFr@0900 [facility] Stop: 03/05/20 08:59 Last Admin: 02/04/20 08:14 Dose: 1,000 mcg Documented by: Dextrose (Dextrose 50% 50 Ml Syringe) 25 - 50 ml IV UD PRN; Protocol PRN Reason: Hypoglycemia Protocol Stop: 03/04/20 15:04 Glucagon (Glucagon For Inj 1 Mg Vial) 1 mg SQ UD PRN; Protocol PRN Reason: Hypoglycemia Protocol Stop: 03/04/20 15:04 Glucose (Glucose 10 Tabs/Tube) 4 - 8 tabs PO UD PRN; Protocol PRN Reason: Hypoglycemia Protocol Stop: 03/04/20 15:04 Glucose (Glucose 40% Gel 15 Gm Tube) 15 - 30 gm PO UD PRN; Protocol PRN Reason: Hypoglycemia Protocol Stop: 03/04/20 15:04 Guaifenesin (Guaifenesin 600 Mg Tabcr) 600 mg PO Q12 [facility] Stop: 03/04/20 20:59 Last Admin: 02/05/20 08:22 Dose: 600 mg Documented by: Hydrochlorothiazide (Hydrochlorothiazide 25 Mg Tab) 12.5 mg PO QAM [facility] Stop: 03/05/20 08:59 Last Admin: 02/04/20 08:13 Dose: 12.5 mg Documented by: Heparin Sodium/Dextrose (Heparin Sodium/Dextrose) 25,000 units in 500 mls @ 19 mls/hr IV .Q24H [facility]; Protocol Stop: 03/04/20 13:29 Last Titration: 02/05/20 07:03 Dose: 950 units/hr, 19 mls/hr Documented by: Ceftriaxone Sodium 1,000 mg/ (Dextrose) 50 mls @ 100 mls/hr IV Q24H [facility]; Protocol Stop: 02/08/20 17:59 Last Infusion: 02/04/20 17:41 Dose: Infused Documented by: Potassium Chloride/Sodium Chloride (Normal Saline W/20 Meq Kcl) 20 meq in 1,000 mls @ 80 mls/hr IV .[id number] Stop: 02/05/20 11:29 Last Admin: 02/05/20 00:08 Dose: 80 mls/hr Documented by: Insulin Aspart (Insulin Aspart 100 Units/Ml 3 Ml Pen) 0 units SC ACHS [facility] Stop: 03/05/20 21:39 Last Admin: 02/05/20 08:18 Dose: 5 units Documented by: Insulin Glargine (Insulin Glargine Solostar 100 Units/Ml 3 Ml Pen) 25 units SQ Q12 [facility] Stop: 03/06/20 08:59 Last Admin: 02/05/20 08:19 Dose: 25 units Documented by: Ipratropium [place] (Ipratropium [place] Neb Soln 0.02% 2.5 Ml Vial) 0.5 mg INH Q6R [facility] Stop: 03/04/20 18:59 Last Admin: 09/01/20 07:02 Dose: 0.5 mg Documented by: Levalbuterol HCl (Levalbuterol 1.25mg/0.5ml Neb) 1.25 mg INH Q6R [facility] Stop: 03/04/20 18:59 Last Admin: 02/05/20 07:01 Dose: 1.25 mg Documented by: Lidocaine (Lidocaine 5% 1 Patch) 2 patch TD QAM [facility] Stop: 03/05/20 08:59 Last Admin: 02/05/20 08:22 Dose: 2 patch Documented by: Lisinopril (Lisinopril 10 Mg Tab) 30 mg PO QAM [facility] Stop: 03/05/20 08:59 Last Admin: 02/05/20 08:21 Dose: 30 mg Documented by: Magnesium Oxide (Magnesium Oxide 400 Mg Tab) 200 mg PO QAM [facility] Stop: 03/05/20 08:59 Last Admin: 02/05/20 08:21 Dose: 200 mg Documented by: Metoprolol Tartrate (Metoprolol Tartrate 25 Mg Tab) 25 mg PO BID [facility] Stop: 03/04/20 20:59 Last Admin: 02/05/20 08:21 Dose: 25 mg Documented by: Miscellaneous (Carbohydrates For Hypoglycemia ) 15 - 30 gm PO UD PRN PRN Reason: Hypoglycemia Protocol Stop: 03/04/20 15:04 Miscellaneous (Remove Lidoderm Patch) 1 ea N/A DAILY@2100 [facility] Stop: 03/04/20 20:59 Last Admin: 02/04/20 20:54 Dose: 1 ea Documented by: Miscellaneous (Remove Nicoderm Patch) [facility] Stop: 03/05/20 08:59 Last Admin: 02/05/20 08:23 Dose: 1 ea Documented by: Multivitamins (Multivitamin Tab) 1 tab PO QAM [facility] Stop: 03/05/20 08:59 Last Admin: 02/05/20 08:20 Dose: 1 tab Documented by: Nicotine (Nicotine 14 Mg/24 Hr Patch) 14 [facility] Stop: 03/05/20 08:59 Last Admin: 02/05/20 08:23 Dose: 14 mg Documented by: Polyethylene Glycol (Polyethylene (Miralax) 17 Gm Pack) 17 gm PO QDL [facility] Stop: 03/05/20 11:29 Last Admin: 02/04/20 10:38 Dose: 17 gm Documented by: Potassium Citrate (Potassium Citrate 10 Meq Tab) 10 meq PO BID [facility] Stop: 03/04/20 20:59 Last Admin: 02/05/20 08:22 Dose: 10 meq Documented by: Senna/Docusate Sodium (Docusate Sodium/Senna 50/8.6mg Tab) 1 tab PO QDL [facility] Stop: 03/05/20 11:29 Last Admin: 02/04/20 10:38 Dose: 1 tab Documented by: Tramadol HCl (Tramadol Hcl 50 Mg Tablet) 50 mg PO Q4H PRN PRN Reason: Pain Stop: 03/04/20 15:04 Last Admin: 02/05/20 06:22 Dose: 50 mg Documented by: Warfarin Sodium (Warfarin Sod 5 Mg Tab) 5 mg PO DAILY@1600 [facility] Stop: 03/06/20 15:59 (1) Multiple fractures of ribs Encounter type: subsequent encounter Fracture healing: with routine healing Fracture type: closed Laterality: left Qualified Code(s): S22.42XD - Multiple fractures of ribs, left side, subsequent encounter for fracture with routine healing (2) Fracture of proximal end of left humerus Encounter type: initial encounter Fracture morphology: unspecified fracture morphology Fracture type: closed Qualified Code(s): S42.202A - Unspecified fracture of upper end of left humerus, initial encounter for closed fracture (3) Pelvic fracture Encounter type: initial encounter Fracture alignment: nondisplaced Fracture type: closed Pelvic bone location: unspecified part of pelvis Qualified Code(s): S32.9XXA - Fracture of unspecified parts of lumbosacral spine and pelvis, initial encounter for closed fracture
[2020-02-05 11:48] LABS: Partial Thromboplastin Ratio 1.5; Partial Thromboplastin Time 40.6 Seconds (21.0-31.0)
[2020-02-05] MEDS: DOCUSATE SODIUM/SENNA 50/8.6MG TAB PO SCH (11:56)
[2020-02-05] MEDS: POLYETHYLENE (MIRALAX) 17 GM PACK PO SCH (11:56)
[2020-02-05] MEDS ORDERED: HEPARIN IV BOLUS 4,000 UNITS in SYRINGE 0 ML IV SCH (12:30)
[2020-02-05] MEDS: WARFARIN SOD 5 MG TAB PO SCH (16:00)
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
[2020-02-05] MEDS: cefTRIAXone SODIUM 1,000 MG in DEXTROSE 5% 50 ML IV SCH (18:22)
[2020-02-05] MEDS: HEPARIN SODIUM/DEXTROSE 25,000 UNITS/500 ML BAG IV SCH (19:04)
[2020-02-05 19:37] LABS: Partial Thromboplastin Ratio 1.9
[2020-02-05 19:40] LABS: Partial Thromboplastin Time 52.1 Seconds (21.0-31.0)
[2020-02-05] MEDS: ATORVASTATIN 40 MG TAB PO SCH (21:01)
--- NOTE | 2020-02-05 22:45 | Electrocardiogram Report ---
Test Reason : Blood Pressure : / mmHG Vent. Rate : 114 BPM Atrial Rate : 000 BPM P-R Int : 000 ms QRS Dur : 078 ms QT Int : 324 ms P-R-T Axes : 000 011 129 degrees QTc Int : 446 ms Atrial fibrillation with rapid ventricular response Septal infarct (cited on or before 22-JUL-2001) Possible Inferior infarct Abnormal ECG When compared with ECG of 04-FEB-2020 06:20, No significant change was found Confirmed by Karan Tafoya ([id number]) on 02/05/2020 10:44:41 PM Referred By: [facility] Confirmed By:Karan Tafoya
[2020-02-06 05:52] LABS: Basophils # (auto) 0.03 K/uL (0-0.2); Basophils % (auto) 0.3 %; Eosinophils # (auto) 0.46 K/uL (0-0.5); Eosinophils % (auto) 4.7 %; Hematocrit (blood only) 31.4 % (37-47); Hemoglobin 10.3 g/dL (12.0-16.0); Immature Granulocytes # (auto) 0.03 K/uL (0.00-0.02); Immature Granulocytes % (auto) 0.3 %; Lymphocytes # (auto) 1.38 K/uL (1.2-3.4); Lymphocytes % (auto) 14.1 %; Mean Corpuscular Hemoglobin 28.2 pg (25-34); Mean Corpuscular Hgb Conc 32.8 g/dL (32-36); Mean Platelet Volume 8.8 fL (7.4-10.4); Monocytes # (auto) 0.71 K/uL (0.11-0.59); Monocytes % (auto) 7.3 %; Neutrophils # (auto) 7.16 K/uL (1.4-6.5); Neutrophils % (auto) 73.3 %; Platelet Count 321 K/uL (130-400); RDW Coefficient of Variation 15.6 % (11.5-14.5); Red Blood Count 3.65 M/uL (4.2-5.4); White Blood Count 9.77 K/uL (4.8-10.8)
[2020-02-06 06:08] LABS: Prothrombin Time 10.9 Seconds (9.0-12.0)
[2020-02-06 06:37] LABS: BUN Creatinine Ratio 25.3 (10-20); Calcium 8.5 mg/dl (8.5-10.1); Creatinine Clr Calc Pharmacy 51.5 ml/min; Est GFR (African American) 77.9; Est GFR (Non-African American) 67.2; Magnesium 2.2 mg/dl (1.8-2.4); Potassium 4.1 mmol/L (3.5-5.1)
[2020-02-06] MEDS: LEVALBUTEROL 1.25MG/0.5ML NEB INH SCH ×4 (07:13→19:07)
[2020-02-06] MEDS: IPRATROPIUM BROMIDE NEB SOLN 0.02% 2.5 ML VIAL INH SCH ×4 (07:13→19:07)
[2020-02-06] MEDS: ACETYLCYSTEINE 10% INHAL SOLN 4 ML **DISPENSED BY RESP. INH SCH ×2 (07:13→19:07)
[2020-02-06] MEDS: ACETAMINOPHEN 325 MG TAB PO SCH ×4 (07:19→23:45)
[2020-02-06] MEDS: INSULIN GLARGINE SOLOSTAR 100 UNITS/ML 3 ML PEN SQ SCH ×2 (08:25→20:35)
[2020-02-06] MEDS: INSULIN ASPART 100 UNITS/ML 3 ML PEN SC SCH ×4 (08:26→20:36)
[2020-02-06] MEDS: ASPIRIN 81 MG ECTAB PO SCH (08:27)
[2020-02-06] MEDS: METOPROLOL TARTRATE 25 MG TAB PO SCH ×2 (08:27→20:34)
[2020-02-06] MEDS: allopurinoL 300 MG TAB PO SCH (08:27)
[2020-02-06] MEDS: MULTIVITAMIN TAB PO SCH (08:27)
[2020-02-06] MEDS: guaiFENesin 600 MG TABCR PO SCH ×2 (08:27→20:34)
[2020-02-06] MEDS: CYANOCOBALAMIN 500 MCG TABLET (VITAMIN B-12) PO SCH (08:27)
[2020-02-06] MEDS: AMIODARONE 200 MG TAB PO SCH ×3 (08:27→16:32)
[2020-02-06] MEDS: POTASSIUM CITRATE 10 MEQ TAB PO SCH ×2 (08:27→20:35)
[2020-02-06] MEDS: MAGNESIUM OXIDE 400 MG TAB PO SCH (08:28)
[2020-02-06] MEDS: lisinopril 10 MG TAB PO SCH (08:28)
[2020-02-06] MEDS: LIDOCAINE 5% 1 PATCH TD SCH (08:28)
[2020-02-06] MEDS: NICOTINE 14 MG/24 HR PATCH TD SCH (08:28)
[2020-02-06 09:21] LABS: Partial Thromboplastin Ratio 1.3; Partial Thromboplastin Time 36.2 Seconds (21.0-31.0)
--- NOTE | 2020-02-06 09:40 | Cardiology Progress Note ---
Date of Service February 06, 2020 Assessment & Plan (1) Multiple fractures of ribs: (2) Pelvic fracture: (3) Fracture of proximal end of left humerus: (4) Atrial fibrillation with RVR: The patient is hemodynamically stable and heart rates are better controlled on amiodarone and metoprolol. INR today is 1.3. With her left arm in the immobilizer along with several rib fractures, I would be reluctant to proceed with a cardioversion this admission. The patient could have the option of returning in several weeks for an elective cardioversion after she is more stable and her fractures have healed. She is currently clinically stable with the atrial fibrillation so I do not believe there is a downside to waiting. Admission and Anticipated Discharge Date Admission Date: February 03, 2020 Subjective The patient is sitting in a chair. She expresses some discomfort due to her arm fracture and rib fractures. Review of Systems Review of Systems: All systems reviewed & are unremarkable except as noted in HPI & below Nothing additional to add. Physical Exam Physical Exam: General: no acute distress and stated age Head: normocephalic, no masses, lesions, tenderness or abnormalities Eyes: conjunctiva are pink and non-injected, sclera clear Neck: supple, no adenopathy, no bruits, normal jugular venous pulse, no hepatojugular reflux Chest: normal shape and normal respiratory effort Lungs: clear to auscultation and percussion Cardiac Exam: - irregular rate & rhythm, no murmurs gallops or rubs - normal S1, normal S2 Pulses: 2(+) throughout Abdomen: abdomen soft, non-tender, no abnormal masses and no hepatosplenomegaly Musculoskeletal: no gait disturbance, no joint inflammation, no deforming arthritis Extremities: Left arm is in a sling Neuro: grossly normal exam Results & Data ([facility]) Vital Signs (Past 12 Hours) Vital Signs Temp Pulse Resp BP Pulse Ox 02/06/20 07:32 37.2 C 92 H 21 145/74 H 100 02/06/20 07:13 92 H 16 97 02/06/20 03:28 36.8 C 72 16 132/77 96 02/06/20 00:00 94 H 16 97 02/05/20 23:11 37 C 68 20 119/81 98 Laboratory Results Laboratory Results - last 24 hr 02/05/20 02/05/20 02/05/20 11:15 11:22 16:20 WBC RBC Hgb Hct MCV MCH MCHC RDW Std Deviation RDW Coeff of Kacey Plt Count MPV Immature Gran % (Auto) Neut % (Auto) Lymph % (Auto) [place] % (Auto) Eos % (Auto) Baso % (Auto) Neut # (Auto) Lymph # (Auto) [place] # (Auto) Eos # (Auto) Baso # (Auto) Immature Gran # (Auto) PT INR APTT 40.6 H PTT Ratio 1.5 Sodium Potassium Chloride Carbon Dioxide Anion Gap BUN Creatinine Est Cr Clr Drug Dosing Est GFR ( Amer) Est GFR (Non-Af Amer) BUN/Creatinine Ratio Glucose POC Glucose 135 H 97 Calcium Magnesium 02/05/20 02/05/20 02/06/20 18:58 20:49 05:30 WBC RBC Hgb Hct MCV MCH MCHC RDW Std Deviation RDW Coeff of Kacey Plt Count MPV Immature Gran % (Auto) Neut % (Auto) Lymph % (Auto) [place] % (Auto) Eos % (Auto) Baso % (Auto) Neut # (Auto) Lymph # (Auto) [place] # (Auto) Eos # (Auto) Baso # (Auto) Immature Gran # (Auto) PT 10.9 INR 1.0 APTT 52.1 H* PTT Ratio 1.9 Sodium Potassium Chloride Carbon Dioxide Anion Gap BUN Creatinine Est Cr Clr Drug Dosing Est GFR ( Amer) Est GFR (Non-Af Amer) BUN/Creatinine Ratio Glucose POC Glucose 186 H Calcium Magnesium 02/06/20 02/06/20 02/06/20 05:30 05:30 05:46 WBC 9.77 RBC 3.65 L Hgb 10.3 L Hct 31.4 L MCV 86.0 MCH 28.2 MCHC 32.8 RDW Std Deviation 49.0 H RDW Coeff of Kacey 15.6 H Plt Count 321 MPV 8.8 Immature Gran % (Auto) 0.3 Neut % (Auto) 73.3 Lymph % (Auto) 14.1 [place] % (Auto) 7.3 Eos % (Auto) 4.7 Baso % (Auto) 0.3 Neut # (Auto) 7.16 H Lymph # (Auto) 1.38 [place] # (Auto) 0.71 H Eos # (Auto) 0.46 Baso # (Auto) 0.03 Immature Gran # (Auto) 0.03 H PT INR APTT 36.2 H PTT Ratio 1.3 Sodium 139 Potassium 4.1 Chloride 107 Carbon Dioxide 25 Anion Gap 7.0 BUN 20 H Creatinine 0.80 Est Cr Clr Drug Dosing 51.5 Est GFR ( Amer) 77.9 Est GFR (Non-Af Amer) 67.2 BUN/Creatinine Ratio 25.3 H Glucose 117 H POC Glucose Calcium 8.5 Magnesium 2.2 02/06/20 07:19 WBC RBC Hgb Hct MCV MCH MCHC RDW Std Deviation RDW Coeff of Kacey Plt Count MPV Immature Gran % (Auto) Neut % (Auto) Lymph % (Auto) [place] % (Auto) Eos % (Auto) Baso % (Auto) Neut # (Auto) Lymph # (Auto) [place] # (Auto) Eos # (Auto) Baso # (Auto) Immature Gran # (Auto) PT INR APTT PTT Ratio Sodium Potassium Chloride Carbon Dioxide Anion Gap BUN Creatinine Est Cr Clr Drug Dosing Est GFR ( Amer) Est GFR (Non-Af Amer) BUN/Creatinine Ratio Glucose POC Glucose 122 H Calcium Magnesium Medications Administered Current Inpatient Medications Acetaminophen (Acetaminophen 325 Mg Tab) 650 mg PO Q6H [facility] Stop: 03/04/20 17:59 Last Admin: 02/06/20 07:19 Dose: Not Given Documented by: Acetylcysteine (Acetylcysteine 10% Inhal Soln 4 Ml Dispensed By Resp.) 3 ml INH Q12R [facility] Stop: 03/04/20 18:59 Last Admin: 02/06/20 07:13 Dose: 3 ml Documented by: Allopurinol (Allopurinol 300 Mg Tab) 300 mg PO QAM [facility] Stop: 03/05/20 08:59 Last Admin: 02/06/20 08:27 Dose: 300 mg Documented by: Amiodarone HCl (Amiodarone 200 Mg Tab) 200 mg PO TIDM [facility] Stop: 03/06/20 05:24 Last Admin: 02/06/20 08:27 Dose: 200 mg Documented by: Aspirin (Aspirin 81 Mg Ectab) 81 mg PO QAM [facility] Stop: 03/05/20 08:59 Last Admin: 02/06/20 08:27 Dose: 81 mg Documented by: Atorvastatin Calcium (Atorvastatin 40 Mg Tab) 40 mg PO HS [facility] Stop: 03/04/20 20:59 Last Admin: 02/05/20 21:01 Dose: 40 mg Documented by: Cyanocobalamin (Cyanocobalamin 500 Mcg Tablet (Vitamin B-12)) 1,000 mcg PO MoWeFr@0900 [facility] Stop: 03/05/20 08:59 Last Admin: 02/06/20 08:27 Dose: 1,000 mcg Documented by: Dextrose (Dextrose 50% 50 Ml Syringe) 25 - 50 ml IV UD PRN; Protocol PRN Reason: Hypoglycemia Protocol Stop: 03/04/20 15:04 Glucagon (Glucagon For Inj 1 Mg Vial) 1 mg SQ UD PRN; Protocol PRN Reason: Hypoglycemia Protocol Stop: 03/04/20 15:04 Glucose (Glucose 10 Tabs/Tube) 4 - 8 tabs PO UD PRN; Protocol PRN Reason: Hypoglycemia Protocol Stop: 03/04/20 15:04 Glucose (Glucose 40% Gel 15 Gm Tube) 15 - 30 gm PO UD PRN; Protocol PRN Reason: Hypoglycemia Protocol Stop: 03/04/20 15:04 Guaifenesin (Guaifenesin 600 Mg Tabcr) 600 mg PO Q12 [facility] Stop: 03/04/20 20:59 Last Admin: 02/06/20 08:27 Dose: 600 mg Documented by: Hydrochlorothiazide (Hydrochlorothiazide 25 Mg Tab) 12.5 mg PO QAM [facility] Stop: 03/05/20 08:59 Last Admin: 02/04/20 08:13 Dose: 12.5 mg Documented by: Heparin Sodium/Dextrose (Heparin Sodium/Dextrose) 25,000 units in 500 mls @ 21 mls/hr IV .[id number] [facility]; Protocol Stop: 03/04/20 13:29 Last Titration: 02/06/20 06:57 Dose: 1,050 units/hr, 21 mls/hr Documented by: Ceftriaxone Sodium 1,000 mg/ (Dextrose) 50 mls @ 100 mls/hr IV Q24H [facility]; Protocol Stop: 02/08/20 17:59 Last Infusion: 02/05/20 19:45 Dose: Infused Documented by: Insulin Aspart (Insulin Aspart 100 Units/Ml 3 Ml Pen) 0 units SC ACHS [facility] Stop: 03/05/20 21:39 Last Admin: 02/06/20 08:26 Dose: 3 units Documented by: Insulin Glargine (Insulin Glargine Solostar 100 Units/Ml 3 Ml Pen) 25 units SQ Q12 [facility] Stop: 03/06/20 08:59 Last Admin: 02/06/20 08:25 Dose: 25 units Documented by: Ipratropium [place] (Ipratropium [place] Neb Soln 0.02% 2.5 Ml Vial) 0.5 mg INH Q6R [facility] Stop: 03/04/20 18:59 Last Admin: 02/06/20 07:13 Dose: 0.5 mg Documented by: Levalbuterol HCl (Levalbuterol 1.25mg/0.5ml Neb) 1.25 mg INH Q6R [facility] Stop: 03/04/20 18:59 Last Admin: 02/06/20 07:13 Dose: 1.25 mg Documented by: Lidocaine (Lidocaine 5% 1 Patch) [facility]: 03/05/20 08:59 Last Admin: 02/06/20 08:28 Dose: 2 patch Documented by: Lisinopril (Lisinopril 10 Mg Tab) 30 [facility] Stop: 03/05/20 08:59 Last Admin: 02/06/20 08:28 Dose: 30 mg Documented by: Magnesium Oxide (Magnesium Oxide 400 Mg Tab) 200 [facility] Stop: 03/05/20 08:59 Last Admin: 02/06/20 08:28 Dose: 200 mg Documented by: Metoprolol Tartrate (Metoprolol Tartrate 25 Mg Tab) 25 mg PO BID [facility] Stop: 03/04/20 20:59 Last Admin: 02/06/20 08:27 Dose: 25 mg Documented by: Miscellaneous (Carbohydrates For Hypoglycemia ) 15 - 30 gm PO UD PRN PRN Reason: Hypoglycemia Protocol Stop: 03/04/20 15:04 Miscellaneous (Remove Lidoderm Patch) 1 ea N/A DAILY@2100 [facility] Stop: 03/04/20 20:59 Last Admin: 02/05/20 21:01 Dose: 1 ea Documented by: Miscellaneous (Remove Nicoderm Patch) 1 ea N/A QAM [facility] Stop: 03/05/20 08:59 Last Admin: 02/06/20 08:29 Dose: 1 ea Documented by: Multivitamins (Multivitamin Tab) 1 tab [facility] Stop: 03/05/20 08:59 Last Admin: 02/06/20 08:27 Dose: 1 tab Documented by: Nicotine (Nicotine 14 Mg/24 Hr Patch) 14 mg TD QAM [facility] Stop: 03/05/20 08:59 Last Admin: 02/06/20 08:28 Dose: 14 mg Documented by: Polyethylene Glycol (Polyethylene (Miralax) 17 Gm Pack) 17 gm PO QDL [facility] Stop: 03/05/20 11:29 Last Admin: 02/05/20 11:56 Dose: 17 gm Documented by: Potassium Citrate (Potassium Citrate 10 Meq Tab) 10 meq PO BID [facility] Stop: 03/04/20 20:59 Last Admin: 02/06/20 08:27 Dose: 10 meq Documented by: Senna/Docusate Sodium (Docusate Sodium/Senna 50/8.6mg Tab) 1 tab PO QDL [facility] Stop: 03/05/20 11:29 Last Admin: 02/05/20 11:56 Dose: 1 tab Documented by: Tramadol HCl (Tramadol Hcl 50 Mg Tablet) 50 mg PO Q4H PRN PRN Reason: Pain Stop: 03/04/20 15:04 Last Admin: 02/05/20 14:26 Dose: 50 mg Documented by: Warfarin Sodium (Warfarin Sod 5 Mg Tab) 5 mg PO DAILY@1600 [facility] Stop: 03/06/20 15:59 Last Admin: 02/05/20 16:00 Dose: 5 mg Documented by: (1) Multiple fractures of ribs Encounter type: subsequent encounter Fracture healing: with routine healing Fracture type: closed Laterality: left Qualified Code(s): S22.42XD - Multiple fractures of ribs, left side, subsequent encounter for fracture with routine healing (2) Fracture of proximal end of left humerus Encounter type: initial encounter Fracture morphology: unspecified fracture morphology Fracture type: closed Qualified Code(s): S42.202A - Unspecified fracture of upper end of left humerus, initial encounter for closed fracture (3) Pelvic fracture Encounter type: initial encounter Fracture alignment: nondisplaced Fracture type: closed Pelvic bone location: unspecified part of pelvis Qualified Code(s): S32.9XXA - Fracture of unspecified parts of lumbosacral spine and pelvis, initial encounter for closed fracture
[2020-02-06] MEDS ORDERED: HEPARIN IV BOLUS 4,000 UNITS in SYRINGE 0 ML IV ONE ×2 (09:54→10:30)
[2020-02-06] MEDS: POLYETHYLENE (MIRALAX) 17 GM PACK PO SCH (11:49)
[2020-02-06] MEDS: DOCUSATE SODIUM/SENNA 50/8.6MG TAB PO SCH (11:49)
[2020-02-06] MEDS: WARFARIN SOD 5 MG TAB PO SCH (16:32)
[2020-02-06] MEDS: traMADol HCL 50 MG TABLET PO PRN (16:35)
[2020-02-06] MEDS: HEPARIN SODIUM/DEXTROSE 25,000 UNITS/500 ML BAG IV SCH (16:35)
[2020-02-06 17:08] LABS: Partial Thromboplastin Ratio 2.2
[2020-02-06 17:09] LABS: Partial Thromboplastin Time 61.6 Seconds (21.0-31.0)
[2020-02-06] MEDS: cefTRIAXone SODIUM 1,000 MG in DEXTROSE 5% 50 ML IV SCH (19:00)
[2020-02-06] MEDS: ATORVASTATIN 40 MG TAB PO SCH (20:35)
[2020-02-07] MEDS: LEVALBUTEROL 1.25MG/0.5ML NEB INH SCH ×4 (00:12→19:06)
[2020-02-07] MEDS: IPRATROPIUM BROMIDE NEB SOLN 0.02% 2.5 ML VIAL INH SCH ×4 (00:12→19:06)
[2020-02-07 06:19] LABS: INR 1.5 (0.9-1.1); Partial Thromboplastin Ratio 1.9; Prothrombin Time 15.3 Seconds (9.0-12.0)
[2020-02-07 06:20] LABS: Partial Thromboplastin Time 52.5 Seconds (21.0-31.0)
[2020-02-07] MEDS: ACETYLCYSTEINE 10% INHAL SOLN 4 ML **DISPENSED BY RESP. INH SCH ×2 (06:58→19:06)
[2020-02-07] MEDS: ACETAMINOPHEN 325 MG TAB PO SCH ×4 (07:04→23:40)
[2020-02-07] MEDS: INSULIN GLARGINE SOLOSTAR 100 UNITS/ML 3 ML PEN SQ SCH ×2 (08:15→21:12)
[2020-02-07] MEDS: INSULIN ASPART 100 UNITS/ML 3 ML PEN SC SCH ×4 (08:16→21:13)
[2020-02-07] MEDS: MAGNESIUM OXIDE 400 MG TAB PO SCH (08:17)
[2020-02-07] MEDS: MULTIVITAMIN TAB PO SCH (08:17)
[2020-02-07] MEDS: guaiFENesin 600 MG TABCR PO SCH ×2 (08:17→21:14)
[2020-02-07] MEDS: POTASSIUM CITRATE 10 MEQ TAB PO SCH ×2 (08:17→21:14)
[2020-02-07] MEDS: METOPROLOL TARTRATE 25 MG TAB PO SCH (08:17)
[2020-02-07] MEDS: ASPIRIN 81 MG ECTAB PO SCH (08:17)
[2020-02-07] MEDS: allopurinoL 300 MG TAB PO SCH (08:18)
[2020-02-07] MEDS: lisinopril 10 MG TAB PO SCH (08:18)
[2020-02-07] MEDS: AMIODARONE 200 MG TAB PO SCH ×3 (08:18→16:51)
[2020-02-07] MEDS: LIDOCAINE 5% 1 PATCH TD SCH (08:18)
[2020-02-07] MEDS: NICOTINE 14 MG/24 HR PATCH TD SCH (08:18)
--- NOTE | 2020-02-07 09:28 | Cardiology Progress Note ---
Date of Service February 07, 2020 Assessment & Plan (1) Multiple fractures of ribs: (2) Pelvic fracture: (3) Fracture of proximal end of left humerus: (4) Atrial fibrillation with RVR: As outlined previously, with the patient's left arm in an immobilizer due to humerus fracture along with other fractures such as ribs and pelvis I think it is best to hold off on cardioversion for several weeks. If we were to proceed with cardioversion now then she would need a JHON which could be diffi cult on this elderly patient with multiple fractures. She is hemodynamically stable and I think we can continue with rate control however, I am going to increase her metoprolol as she is having some breakthrough RVR. Continue heparin until INR is therapeutic. Admission and Anticipated Discharge Date Admission Date: February 03, 2020 Subjective The patient is sitting in a chair with no new cardiac complaints. Review of Systems Review of Systems: All systems reviewed & are unremarkable except as noted in HPI & below Nothing additional to add. Physical Exam Physical Exam: General: no acute distress and stated age Head: normocephalic, no masses, lesions, tenderness or abnormalities Eyes: conjunctiva are pink and non-injected, sclera clear Neck: supple, no adenopathy, no bruits, normal jugular venous pulse, no hepatojugular reflux Chest: normal shape and normal respiratory effort Lungs: clear to auscultation and percussion Cardiac Exam: - irregular rate & rhythm, no murmurs gallops or rubs - normal S1, normal S2 Pulses: 2(+) throughout Abdomen: abdomen soft, non-tender, no abnormal masses and no hepatosplenomegaly Musculoskeletal: no gait disturbance, no joint inflammation, no deforming arthritis Extremities: no edema and no cyanosis Neuro: grossly normal exam Results & Data ([facility]) Vital Signs (Past 12 Hours) Vital Signs Temp Pulse Resp BP Pulse Ox 02/07/20 07:11 36.5 C 92 H 19 146/70 H 94 02/07/20 07:01 20 94 02/07/20 03:42 36.5 C 98 H 19 133/81 95 02/07/20 00:13 85 16 95 02/07/20 00:02 36.3 C L 81 18 146/73 H 97 Laboratory Results Laboratory Results - last 24 hr 02/06/20 02/06/20 02/06/20 11:22 16:22 16:27 PT INR APTT 61.6 H* PTT Ratio 2.2 POC Glucose 177 H 97 02/06/20 02/07/20 02/07/20 20:07 05:24 07:08 PT 15.3 H INR 1.5 H APTT 52.5 H* PTT Ratio 1.9 POC Glucose 246 H 181 H Medications Administered Current Inpatient Medications Acetaminophen (Acetaminophen 325 Mg Tab) 650 mg PO Q6H [facility] Stop: 03/04/20 17:59 Last Admin: 02/07/20 07:04 Dose: 650 mg Documented by: Acetylcysteine (Acetylcysteine 10% Inhal Soln 4 Ml Dispensed By Resp.) 3 ml INH Q12R [facility] Stop: 03/04/20 18:59 Last Admin: 02/07/20 06:58 Dose: 3 ml Documented by: Allopurinol (Allopurinol 300 Mg Tab) 300 mg PO QAM [facility] Stop: 03/05/20 08:59 Last Admin: 02/07/20 08:18 Dose: 300 mg Documented by: Amiodarone HCl (Amiodarone 200 Mg Tab) 200 mg PO TIDM [facility] Stop: 03/06/20 05:24 Last Admin: 02/07/20 08:18 Dose: 200 mg Documented by: Aspirin (Aspirin 81 Mg Ectab) [facility] Stop: 03/05/20 08:59 Last Admin: 02/07/20 08:17 Dose: 81 mg Documented by: Atorvastatin Calcium (Atorvastatin 40 Mg Tab) 40 mg PO HS [facility] Stop: 03/04/20 20:59 Last Admin: 02/06/20 20:35 Dose: 40 mg Documented by: Cyanocobalamin (Cyanocobalamin 500 Mcg Tablet (Vitamin B-12)) 1,000 mcg PO MoWeFr@0900 [facility] Stop: 03/05/20 08:59 Last Admin: 02/06/20 08:27 Dose: 1,000 mcg Documented by: Dextrose (Dextrose 50% 50 Ml Syringe) 25 - 50 ml IV UD PRN; Protocol PRN Reason: Hypoglycemia Protocol Stop: 03/04/20 15:04 Glucagon (Glucagon For Inj 1 Mg Vial) 1 mg SQ UD PRN; Protocol PRN Reason: Hypoglycemia Protocol Stop: 03/04/20 15:04 Glucose (Glucose 10 Tabs/Tube) 4 - 8 tabs PO UD PRN; Protocol PRN Reason: Hypoglycemia Protocol Stop: 03/04/20 15:04 Glucose (Glucose 40% Gel 15 Gm Tube) 15 - 30 gm PO UD PRN; Protocol PRN Reason: Hypoglycemia Protocol Stop: 03/04/20 15:04 Guaifenesin (Guaifenesin 600 Mg Tabcr) 600 mg PO Q12 [facility] Stop: 03/04/20 20:59 Last Admin: 02/07/20 08:17 Dose: 600 mg Documented by: Hydrochlorothiazide (Hydrochlorothiazide 25 Mg Tab) 12.5 mg PO QAM [facility] Stop: 03/05/20 08:59 Last Admin: 02/04/20 08:13 Dose: 12.5 mg Documented by: Heparin Sodium/Dextrose (Heparin Sodium/Dextrose) 25,000 units in 500 mls @ 23 mls/hr IV .[id number] [facility]; Protocol Stop: 03/04/20 13:29 Last Titration: 02/07/20 06:56 Dose: 1,150 units/hr, 23 mls/hr Documented by: Ceftriaxone Sodium 1,000 mg/ (Dextrose) 50 mls @ 100 mls/hr IV Q24H [facility]; Protocol Stop: 02/08/20 17:59 Last Infusion: 02/06/20 19:30 Dose: Infused Documented by: Insulin Aspart (Insulin Aspart 100 Units/Ml 3 Ml Pen) 0 units SC ACHS [facility] Stop: 03/05/20 21:39 Last Admin: 02/07/20 08:16 Dose: 5 units Documented by: Insulin Glargine (Insulin Glargine Solostar 100 Units/Ml 3 Ml Pen) 25 units SQ Q12 [facility] Stop: 03/06/20 08:59 Last Admin: 02/07/20 08:15 Dose: 25 units Documented by: Ipratropium [place] (Ipratropium [place] Neb Soln 0.02% 2.5 Ml Vial) 0.5 mg INH Q6R [facility] Stop: 03/04/20 18:59 Last Admin: 02/07/20 06:58 Dose: 0.5 mg Documented by: Levalbuterol HCl (Levalbuterol 1.25mg/0.5ml Neb) 1.25 mg INH Q6R [facility] Stop: 03/04/20 18:59 Last Admin: 02/07/20 06:58 Dose: 1.25 mg Documented by: Lidocaine (Lidocaine 5% 1 Patch) [facility] Stop: 03/05/20 08:59 Last Admin: 02/07/20 08:18 Dose: 2 patch Documented by: Lisinopril (Lisinopril 10 Mg Tab) 30 mg PO QAM [facility] Stop: 03/05/20 08:59 Last Admin: 02/07/20 08:18 Dose: 30 mg Documented by: Magnesium Oxide (Magnesium Oxide 400 Mg Tab) 200 mg PO QAM [facility] Stop: 03/05/20 08:59 Last Admin: 02/07/20 08:17 Dose: 200 mg Documented by: Metoprolol Tartrate (Metoprolol Tartrate 25 Mg Tab) 25 mg PO BID [facility] Stop: 03/04/20 20:59 Last Admin: 02/07/20 08:17 Dose: 25 mg Documented by: Miscellaneous (Carbohydrates For Hypoglycemia ) 15 - 30 gm PO UD PRN PRN Reason: Hypoglycemia Protocol Stop: 03/04/20 15:04 Miscellaneous (Remove Lidoderm Patch) 1 ea N/A DAILY@2100 [facility] Stop: 03/04/20 20:59 Last Admin: 02/06/20 20:37 Dose: 1 ea Documented by: Miscellaneous (Remove Nicoderm Patch) 1 ea N/A [facility] Stop: 03/05/20 08:59 Last Admin: 02/07/20 08:19 Dose: 1 ea Documented by: Multivitamins (Multivitamin Tab) 1 [facility] Stop: 03/05/20 08:59 Last Admin: 02/07/20 08:17 Dose: 1 tab Documented by: Nicotine (Nicotine 14 Mg/24 Hr Patch) 14 mg [facility] Stop: 03/05/20 08:59 Last Admin: 02/07/20 08:18 Dose: 14 mg Documented by: Polyethylene Glycol (Polyethylene (Miralax) 17 Gm Pack) 17 gm PO QDL [facility] Stop: 03/05/20 11:29 Last Admin: 02/06/20 11:49 Dose: 17 gm Documented by: Potassium Citrate (Potassium Citrate 10 Meq Tab) 10 meq PO BID [facility] Stop: 03/04/20 20:59 Last Admin: 02/07/20 08:17 Dose: 10 meq Documented by: Senna/Docusate Sodium (Docusate Sodium/Senna 50/8.6mg Tab) 1 tab PO QDL [facility] Stop: 03/05/20 11:29 Last Admin: 02/06/20 11:49 Dose: 1 tab Documented by: Tramadol HCl (Tramadol Hcl 50 Mg Tablet) 50 mg PO Q4H PRN PRN Reason: Pain Stop: 03/04/20 15:04 Last Admin: 02/06/20 16:35 Dose: 50 mg Documented by: Warfarin Sodium (Warfarin Sod 5 Mg Tab) 5 mg PO DAILY@1600 [facility] Stop: 03/06/20 15:59 Last Admin: 02/06/20 16:32 Dose: 5 mg Documented by: (1) Multiple fractures of ribs Encounter type: subsequent encounter Fracture healing: with routine healing Fracture type: closed Laterality: left Qualified Code(s): S22.42XD - Multiple fractures of ribs, left side, subsequent encounter for fracture with routine healing (2) Fracture of proximal end of left humerus Encounter type: initial encounter Fracture morphology: unspecified fracture morphology Fracture type: closed Qualified Code(s): S42.202A - Unspecified fracture of upper end of left humerus, initial encounter for closed fracture (3) Pelvic fracture Encounter type: initial encounter Fracture alignment: nondisplaced Fracture type: closed Pelvic bone location: unspecified part of pelvis Qualified Code(s): S32.9XXA - Fracture of unspecified parts of lumbosacral spine and pelvis, initial encounter for closed fracture
[2020-02-07] MEDS: traMADol HCL 50 MG TABLET PO PRN ×2 (11:38→21:17)
[2020-02-07] MEDS: POLYETHYLENE (MIRALAX) 17 GM PACK PO SCH (11:39)
[2020-02-07] MEDS: DOCUSATE SODIUM/SENNA 50/8.6MG TAB PO SCH (11:39)
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
[2020-02-07] MEDS: HEPARIN SODIUM/DEXTROSE 25,000 UNITS/500 ML BAG IV SCH (14:51)
[2020-02-07] MEDS: WARFARIN SOD 5 MG TAB PO SCH (16:51)
[2020-02-07] MEDS: cefTRIAXone SODIUM 1,000 MG in DEXTROSE 5% 50 ML IV SCH (17:00)
[2020-02-07] MEDS: ATORVASTATIN 40 MG TAB PO SCH (21:14)
[2020-02-07] MEDS: METOPROLOL TARTRATE 50 MG TAB PO SCH (21:15)
[2020-02-08] MEDS: LEVALBUTEROL 1.25MG/0.5ML NEB INH SCH ×3 (00:36→13:14)
[2020-02-08] MEDS: IPRATROPIUM BROMIDE NEB SOLN 0.02% 2.5 ML VIAL INH SCH ×3 (00:36→13:14)
[2020-02-08 05:31] LABS: Basophils # (auto) 0.03 K/uL (0-0.2); Basophils % (auto) 0.2 %; Eosinophils # (auto) 0.37 K/uL (0-0.5); Eosinophils % (auto) 2.6 %; Hematocrit (blood only) 31.6 % (37-47); Hemoglobin 10.4 g/dL (12.0-16.0); Immature Granulocytes # (auto) 0.11 K/uL (0.00-0.02); Immature Granulocytes % (auto) 0.8 %; Lymphocytes # (auto) 2.23 K/uL (1.2-3.4); Lymphocytes % (auto) 15.5 %; Mean Corpuscular Hemoglobin 28.6 pg (25-34); Mean Corpuscular Hgb Conc 32.9 g/dL (32-36); Mean Corpuscular Volume 86.8 fL (80-100); Mean Platelet Volume 8.7 fL (7.4-10.4); Monocytes # (auto) 1.12 K/uL (0.11-0.59); Monocytes % (auto) 7.8 %; Neutrophils # (auto) 10.54 K/uL (1.4-6.5); Neutrophils % (auto) 73.1 %; Platelet Count 408 K/uL (130-400); RDW Coefficient of Variation 15.9 % (11.5-14.5); RDW Standard Deviation 49.8 fL (36.4-46.3); Red Blood Count 3.64 M/uL (4.2-5.4)
[2020-02-08 05:52] LABS: INR 2.3 (0.9-1.1); Partial Thromboplastin Ratio 2.6
[2020-02-08 05:53] LABS: Partial Thromboplastin Time 73.9 Seconds (21.0-31.0)
[2020-02-08] MEDS: ACETAMINOPHEN 325 MG TAB PO SCH ×2 (06:29→12:06)
[2020-02-08] MEDS: ACETYLCYSTEINE 10% INHAL SOLN 4 ML **DISPENSED BY RESP. INH SCH (07:09)
[2020-02-08] MEDS: INSULIN ASPART 100 UNITS/ML 3 ML PEN SC SCH ×2 (08:11→12:32)
[2020-02-08] MEDS: AMIODARONE 200 MG TAB PO SCH (08:12)
[2020-02-08] MEDS: INSULIN GLARGINE SOLOSTAR 100 UNITS/ML 3 ML PEN SQ SCH (08:13)
[2020-02-08] MEDS: ASPIRIN 81 MG ECTAB PO SCH (08:13)
[2020-02-08] MEDS: LIDOCAINE 5% 1 PATCH TD SCH (08:14)
[2020-02-08] MEDS: METOPROLOL TARTRATE 50 MG TAB PO SCH (08:15)
[2020-02-08] MEDS: MAGNESIUM OXIDE 400 MG TAB PO SCH (08:16)
[2020-02-08] MEDS: MULTIVITAMIN TAB PO SCH (08:16)
[2020-02-08] MEDS: guaiFENesin 600 MG TABCR PO SCH (08:16)
[2020-02-08] MEDS: NICOTINE 14 MG/24 HR PATCH TD SCH (08:17)
[2020-02-08] MEDS: CYANOCOBALAMIN 500 MCG TABLET (VITAMIN B-12) PO SCH (08:19)
[2020-02-08] MEDS: POTASSIUM CITRATE 10 MEQ TAB PO SCH (08:19)
[2020-02-08] MEDS: allopurinoL 300 MG TAB PO SCH (08:20)
[2020-02-08] MEDS: lisinopril 10 MG TAB PO SCH (08:20)
[2020-02-08 08:50] LABS: BUN Creatinine Ratio 21.1 (10-20); Calcium 9.3 mg/dl (8.5-10.1); Creatinine Clr Calc Pharmacy 44.1 ml/min; Est GFR (African American) 65.8; Est GFR (Non-African American) 56.8; Magnesium 2.1 mg/dl (1.8-2.4); Potassium 4.6 mmol/L (3.5-5.1)
[2020-02-08] MEDS: traMADol HCL 50 MG TABLET PO PRN (09:03)
--- NOTE | 2020-02-08 09:28 | Cardiology Progress Note ---
Date of Service February 08, 2020 Assessment & Plan (1) Multiple fractures of ribs: (2) Pelvic fracture: (3) Fracture of proximal end of left humerus: (4) Atrial fibrillation with RVR: The patient is in a controlled atrial fibrillation. Her INR is therapeutic and heparin has been stopped. The plan is to discharge her to [facility] later today. She should be discharged on amiodarone 200 mg twice daily and her current dose of metoprolol. I have arranged follow-up through our office in the next 1 to 2 weeks at which time we will reassess and plan for possible cardioversion. Admission and Anticipated Discharge Date Admission Date: February 03, 2020 Subjective The patient is resting comfortably. No new cardiac complaints today. Review of Systems Review of Systems: All systems reviewed & are unremarkable except as noted in HPI & below Nothing additional to add. Physical Exam Physical Exam: General: no acute distress and stated age Head: normocephalic, no masses, lesions, tenderness or abnormalities Eyes: conjunctiva are pink and non-injected, sclera clear Neck: supple, no adenopathy, no bruits, normal jugular venous pulse, no hepatojugular reflux Chest: normal shape and normal respiratory effort Lungs: clear to auscultation and percussion Cardiac Exam: - irregular rate & rhythm, no murmurs gallops or rubs - normal S1, normal S2 Pulses: 2(+) throughout Abdomen: abdomen soft, non-tender, no abnormal masses and no hepatosplenomegaly Musculoskeletal: no gait disturbance, no joint inflammation, no deforming arthritis Extremities: Left arm in an immobilizer Neuro: grossly normal exam Results & Data ([facility]) Vital Signs (Past 12 Hours) Vital Signs Temp Pulse Resp BP Pulse Ox 02/08/20 08:12 36.3 C L 79 20 118/77 92 02/08/20 07:10 96 H 14 97 02/08/20 03:26 36.5 C 91 H 18 126/70 94 02/08/20 00:36 81 16 96 02/08/20 00:35 36.6 C 77 18 124/72 96 Laboratory Results Laboratory Results - last 24 hr 02/07/20 02/07/20 02/07/20 11:17 16:27 21:00 WBC RBC Hgb Hct MCV MCH MCHC RDW Std Deviation RDW Coeff of Kacey Plt Count MPV Immature Gran % (Auto) Neut % (Auto) Lymph % (Auto) [place] % (Auto) Eos % (Auto) Baso % (Auto) Neut # (Auto) Lymph # (Auto) [place] # (Auto) Eos # (Auto) Baso # (Auto) Immature Gran # (Auto) PT INR APTT PTT Ratio Sodium Potassium Chloride Carbon Dioxide Anion Gap BUN Creatinine Est Cr Clr Drug Dosing Est GFR ( Amer) Est GFR (Non-Af Amer) BUN/Creatinine Ratio Glucose POC Glucose 210 H 135 H 212 H Calcium Magnesium 02/08/20 02/08/20 02/08/20 04:46 04:46 04:47 WBC 14.40 H RBC 3.64 L Hgb 10.4 L Hct 31.6 L MCV 86.8 MCH 28.6 MCHC 32.9 RDW Std Deviation 49.8 H RDW Coeff of Kacey 15.9 H Plt Count 408 H MPV 8.7 Immature Gran % (Auto) 0.8 Neut % (Auto) 73.1 Lymph % (Auto) 15.5 [place] % (Auto) 7.8 Eos % (Auto) 2.6 Baso % (Auto) 0.2 Neut # (Auto) 10.54 H Lymph # (Auto) 2.23 [place] # (Auto) 1.12 H Eos # (Auto) 0.37 Baso # (Auto) 0.03 Immature Gran # (Auto) 0.11 H PT 23.0 H INR 2.3 H APTT 73.9 H* PTT Ratio 2.6 Sodium 136 Potassium 4.6 Chloride 104 Carbon Dioxide 25 Anion Gap 8.0 BUN 19 H Creatinine 0.92 Est Cr Clr Drug Dosing 44.1 Est GFR ( Amer) 65.8 Est GFR (Non-Af Amer) 56.8 BUN/Creatinine Ratio 21.1 H Glucose 161 H POC Glucose Calcium 9.3 Magnesium 2.1 02/08/20 07:12 WBC RBC Hgb Hct MCV MCH MCHC RDW Std Deviation RDW Coeff of Kacey Plt Count MPV Immature Gran % (Auto) Neut % (Auto) Lymph % (Auto) [place] % (Auto) Eos % (Auto) Baso % (Auto) Neut # (Auto) Lymph # (Auto) [place] # (Auto) Eos # (Auto) Baso # (Auto) Immature Gran # (Auto) PT INR APTT PTT Ratio Sodium Potassium Chloride Carbon Dioxide Anion Gap BUN Creatinine Est Cr Clr Drug Dosing Est GFR ( Amer) Est GFR (Non-Af Amer) BUN/Creatinine Ratio Glucose POC Glucose 181 H Calcium Magnesium Medications Administered Current Inpatient Medications Acetaminophen (Acetaminophen 325 Mg Tab) 650 mg PO Q6H [facility] Stop: 03/04/20 17:59 Last Admin: 02/08/20 06:29 Dose: Not Given Documented by: Acetylcysteine (Acetylcysteine 10% Inhal Soln 4 Ml Dispensed By Resp.) 3 ml INH Q12R [facility] Stop: 03/04/20 18:59 Last Admin: 02/08/20 07:09 Dose: 3 ml Documented by: Allopurinol (Allopurinol 300 Mg Tab) 300 mg PO QAM [facility] Stop: 03/05/20 08:59 Last Admin: 02/08/20 08:20 Dose: 300 mg Documented by: Amiodarone HCl (Amiodarone 200 Mg Tab) 200 mg PO BIDM [facility] Stop: 03/09/20 16:59 Aspirin (Aspirin 81 Mg Ectab) 81 mg PO QAM [facility] Stop: 03/05/20 08:59 Last Admin: 02/08/20 08:13 Dose: 81 mg Documented by: Atorvastatin Calcium (Atorvastatin 40 Mg Tab) 40 mg PO HS [facility] Stop: 03/04/20 20:59 Last Admin: 02/07/20 21:14 Dose: 40 mg Documented by: Cyanocobalamin (Cyanocobalamin 500 Mcg Tablet (Vitamin B-12)) 1,000 mcg PO MoWeFr@0900 [facility] Stop: 03/05/20 08:59 Last Admin: 02/08/20 08:19 Dose: 1,000 mcg Documented by: Dextrose (Dextrose 50% 50 Ml Syringe) 25 - 50 ml IV UD PRN; Protocol PRN Reason: Hypoglycemia Protocol Stop: 03/04/20 15:04 Glucagon (Glucagon For Inj 1 Mg Vial) 1 mg SQ UD PRN; Protocol PRN Reason: Hypoglycemia Protocol Stop: 03/04/20 15:04 Glucose (Glucose 10 Tabs/Tube) 4 - 8 tabs PO UD PRN; Protocol PRN Reason: Hypoglycemia Protocol Stop: 03/04/20 15:04 Glucose (Glucose 40% Gel 15 Gm Tube) 15 - 30 gm PO UD PRN; Protocol PRN Reason: Hypoglycemia Protocol Stop: 09/29/20 15:04 Guaifenesin (Guaifenesin 600 Mg Tabcr) 600 mg PO Q12 [facility] Stop: 03/04/20 20:59 Last Admin: 02/08/20 08:16 Dose: 600 mg Documented by: Hydrochlorothiazide (Hydrochlorothiazide 25 Mg Tab) 12.5 mg PO QAM [facility] Stop: 03/05/20 08:59 Last Admin: 02/04/20 08:13 Dose: 12.5 mg Documented by: Ceftriaxone Sodium 1,000 mg/ (Dextrose) 50 mls @ 100 mls/hr IV Q24H [facility]; Protocol Stop: 02/08/20 17:59 Last Infusion: 02/07/20 17:30 Dose: Infused Documented by: Insulin Aspart (Insulin Aspart 100 Units/Ml 3 Ml Pen) 0 units SC ACHS [facility] Stop: 03/05/20 21:39 Last Admin: 02/08/20 08:11 Dose: 6 units Documented by: Insulin Glargine (Insulin Glargine Solostar 100 Units/Ml 3 Ml Pen) 25 units SQ Q12 [facility] Stop: 03/06/20 08:59 Last Admin: 02/08/20 08:13 Dose: 25 units Documented by: Ipratropium [place] (Ipratropium [place] Neb Soln 0.02% 2.5 Ml Vial) 0.5 mg INH Q6R [facility] Stop: 03/04/20 18:59 Last Admin: 02/08/20 07:09 Dose: 0.5 mg Documented by: Levalbuterol HCl (Levalbuterol 1.25mg/0.5ml Neb) 1.25 mg INH Q6R [facility] Stop: 03/04/20 18:59 Last Admin: 02/08/20 07:09 Dose: 1.25 mg Documented by: Lidocaine (Lidocaine 5% 1 Patch) 2 patch TD QAM [facility] Stop: 03/05/20 08:59 Last Admin: 02/08/20 08:14 Dose: 2 patch Documented by: Lisinopril (Lisinop[facility] 10 Mg Tab) [facility] Stop: 03/05/20 08:59 Last Admin: 02/08/20 08:20 Dose: 30 mg Documented by: Magnesium Oxide (Magnesium Oxide 400 Mg Tab) 200 mg PO QAM [facility] Stop: 03/05/20 08:59 Last Admin: 02/08/20 08:16 Dose: 200 mg Documented by: Metoprolol Tartrate (Metoprolol Tartrate 50 Mg Tab) 50 mg PO BID [facility] Stop: 03/08/20 20:59 Last Admin: 02/08/20 08:15 Dose: 50 mg Documented by: Miscellaneous (Carbohydrates For Hypoglycemia ) 15 - 30 gm PO UD PRN PRN Reason: Hypoglycemia Protocol Stop: 03/04/20 15:04 Miscellaneous (Remove Lidoderm Patch) 1 ea N/A DAILY@2100 [facility] Stop: 03/04/20 20:59 Last Admin: 02/07/20 21:14 Dose: 1 ea Documented by: Miscellaneous (Remove Nicoderm Patch) 1 ea N/A QAM [facility] Stop: 03/05/20 08:59 Last Admin: 02/08/20 08:18 Dose: 1 ea Documented by: Multivitamins (Multivitamin Tab) 1 [facility] Stop: 03/05/20 08:59 Last Admin: 02/08/20 08:16 Dose: 1 tab Documented by: Nicotine (Nicotine 14 Mg/24 Hr Patch) 14 mg TD [facility] Stop: 03/05/20 08:59 Last Admin: 02/08/20 08:17 Dose: 14 mg Documented by: Polyethylene Glycol (Polyethylene (Miralax) 17 Gm Pack) 17 gm PO QDL [facility] Stop: 03/05/20 11:29 Last Admin: 02/07/20 11:39 Dose: 17 gm Documented by: Potassium Citrate (Potassium Citrate 10 Meq Tab) 10 meq PO BID [facility] Stop: 03/04/20 20:59 Last Admin: 02/08/20 08:19 Dose: 10 meq Documented by: Senna/Docusate Sodium (Docusate Sodium/Senna 50/8.6mg Tab) 1 tab PO QDL [facility] Stop: 03/05/20 11:29 Last Admin: 02/07/20 11:39 Dose: 1 tab Documented by: Tramadol HCl (Tramadol Hcl 50 Mg Tablet) 50 mg PO Q4H PRN PRN Reason: Pain Stop: 03/04/20 15:04 Last Admin: 02/08/20 09:03 Dose: 50 mg Documented by: Warfarin Sodium (Warfarin Sod 5 Mg Tab) 5 mg PO DAILY@1600 [facility] Stop: 03/06/20 15:59 Last Admin: 02/07/20 16:51 Dose: 5 mg Documented by: (1) Multiple fractures of ribs Encounter type: subsequent encounter Fracture healing: with routine healing Fracture type: closed Laterality: left Qualified Code(s): S22.42XD - Multiple fractures of ribs, left side, subsequent encounter for fracture with routine healing (2) Pelvic fracture Encounter type: initial encounter Fracture alignment: nondisplaced Fracture type: closed Pelvic bone location: unspecified part of pelvis Qualified Code(s): S32.9XXA - Fracture of unspecified parts of lumbosacral spine and pelvis, initial encounter for closed fracture (3) Fracture of proximal end of left humerus Encounter type: initial encounter Fracture morphology: unspecified fracture morphology Fracture type: closed Qualified Code(s): S42.202A - Unspecified fracture of upper end of left humerus, initial encounter for closed fracture
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
[2020-02-08] MEDS: POLYETHYLENE (MIRALAX) 17 GM PACK PO SCH (12:05)
[2020-02-08] MEDS: DOCUSATE SODIUM/SENNA 50/8.6MG TAB PO SCH (12:06)
[2020-02-08] MEDS: WARFARIN SOD 5 MG TAB PO SCH (15:20)
[2020-02-08] MEDS ORDERED: AMIODARONE 200 MG TAB PO SCH (17:00)
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
== END 2020-02-08 16:07 | DRG 309 ==
LOC: ED 09:22 → 2S 13:08 → SUATTDRO 13:08 → 2S 14:11